=== PATIENT | male | born 1960 | race Caucasian/White ===

== ENCOUNTER 2020-11-29 08:35 | Outpatient (REF) | payer OTHER, SELFPAY ==
--- NOTE | 2020-11-29 09:00 | EMG_ITS ---
Left median and ulnar motor and sensory studies were performed. Left radial sensory study was performed. Paraspinal and some limb muscles were tested with a needle. IMPRESSION: Chronic left mid cervical radiculopathy. MD FRIEDA Chavez/STEPHANIE / [id number]
== END 2020-11-29 08:36 | disposition home or self-care (01) ==
LOC: HO.NEURO 08:35
PROVIDERS: PCP Internal Medicine; Visit Provider Internal Medicine
DX: M79.602 Pain in left arm (principal)
CPT/HCPCS: 95860; 95886; 95909; 95910

== ENCOUNTER 2020-12-10 07:55 | Outpatient (REF) | payer OTHER, SELFPAY ==
--- NOTE | 2020-12-10 08:02 | XR_ITS ---
EXAMINATION: XR CERVICAL SPINE CLINICAL INFORMATION: Cervical radiculopathy. COMPARISON: None TECHNIQUE: Five views of the cervical spine. FINDINGS: Bone alignment is normal. No fracture or dislocation is seen. There is degenerative spondylosis and degenerative disc disease from C3-C4 to C6-C7. There is right-sided neuroforaminal narrowing from bony osteophyte from C2-C3 to C4-C5. There is left-sided neuroforaminal narrowing from bony osteophyte at C2-C3, C4-C5 and C5-C6. Prevertebral soft tissues are normal. There is posterior soft tissue calcification or ossification posterior to the C5 spinous process probably in the nuchal ligament. XR/XR cervical spine 4V IMPRESSION: Degenerative changes.
== END 2020-12-10 07:56 | disposition home or self-care (01) ==
LOC: HO.XRAY 07:55
PROVIDERS: PCP Internal Medicine; Visit Provider Internal Medicine
DX: M54.12 Radiculopathy, cervical region (principal)
CPT/HCPCS: 72050

== ENCOUNTER 2020-12-19 07:50 | Outpatient (REF) | payer OTHER, SELFPAY ==
[2020-12-19 08:34] LABS: MANUAL DIFF FLAG NO
[2020-12-19 08:38] LABS: Basophils Absolute Auto 0.1 X10*3/uL (0.0-0.2); Basophils Percent Auto 1.2 % (0-2); Eosinophils Absolute Auto 0.4 X10*3/uL (0.0-0.4); Eosinophils Percent Auto 4.3 % (0-4); Hematocrit 44.4 % (42-52); Hemoglobin 14.2 g/dl (14.0-18.0); Imm Gran Abs Auto 0.02 X10*3/uL (0.00-0.03); Imm Gran Pct Auto 0.2 % (0.0-0.4); Lymphocytes Percent Auto 35.4 % (20-40); Mean Corpuscular Hemoglobin 28.7 pg (27.0-33.0); Mean Corpuscular Volume 89.9 fL (80-98); Mean Platelet Volume 10.2 fL (9.4-12.4); Monocytes Absolute Auto 0.9 X10*3/uL (0.1-1.2); Monocytes Percent Auto 10.3 % (2-11); Neutrophils Absolute Auto 4.1 X10*3/uL (2.0-8.3); Neutrophils Percent Auto 48.6 % (45-73); Platelet Count 317 X10*3/uL (160-400); Red Blood Count 4.94 X10*6/uL (4.60-5.80); Red Cell Distribution Width 13.1 % (11.0-16.0); White Blood Count 8.4 X10*3/uL (4.8-10.8)
[2020-12-19 09:08] LABS: Alanine Aminotransferase 11 U/L (0-40); Alkaline Phosphatase 114 U/L (39-117); Anion Gap 12 (12-20); Aspartate Amino Transferase 11 U/L (5-37); Bilirubin Direct 0.2 mg/dL (0.0-0.5); Bilirubin Total 0.4 mg/dL (0.0-1.0); Blood Urea Nitrogen 14 mg/dL (9-16); Calcium 9.2 mg/dL (8.4-10.2); Carbon Dioxide 29 mmol/L (22-29); Chloride 106 mmol/L (96-108); Cholesterol 150 mg/dL; Creatinine Urine 147.65 mg/dL; Estimated Glomerular Filt Rate > 60; Glucose Random 99 mg/dL (60-115); HDL Cholesterol 45 mg/dL; LDL Cholesterol Calculated 82 mg/dl; Microalbum/Creatinine Ratio Ur 8.1 ug/mg cr; Potassium 4.5 mmol/l (3.3-5.1); Sodium 142 mmol/L (135-145); Total Protein 6.4 g/dL (6.5-8.0); Triglycerides 117 mg/dL
[2020-12-19 09:30] LABS: Estimated Average Glucose 283 mg/dL; Hemoglobin A1c % 11.5 %
[2020-12-19 09:31] LABS: TSH reflex Free T4 4.72 mIU/mL (0.32-4.0); Vitamin D 25-OH Total 15.1 ng/mL (>30)
[2020-12-19 10:05] LABS: Free T4 (Free Thyroxine) 0.98 ng/dL (0.71-1.85)
== END 2020-12-19 07:51 | disposition home or self-care (01) ==
LOC: HO.LAB 07:50
PROVIDERS: PCP Internal Medicine; Visit Provider Internal Medicine
DX: Z00.00 Encounter for general adult medical examination without abnormal findings (principal)
CPT/HCPCS: 36415; 80048; 80061; 80076; 82043; 82306; 83036; 84439; 84443; 85025

== ENCOUNTER 2021-05-25 12:08 | Emergency (ER) | payer OTHER, SELFPAY ==
--- NOTE | ~2021-05-25 | CT_ITS ---
EXAMINATION: CT HEAD WITHOUT CONTRAST CLINICAL INFORMATION: Headaches. COMPARISON: None TECHNIQUE: Contiguous axial imaging was performed from the skull base to vertex without intravenous administration of contrast. This CT examination was performed using dose optimization techniques as appropriate, variously including the following: *Automated exposure control *Adjustment of mA and/or kV according to patient size (this includes techniques or standardized protocols for targeted exams where dose is matched to indication/reason for exam; i.e. extremities or head) *Use of iterative reconstruction technique DLP: 725 mGy-cm FINDINGS: There is no evidence of acute intracranial hemorrhage or territorial infarction. No abnormal mass effect or midline shift is seen. Johnson to white matter differentiation is well preserved. No extra-axial fluid collections are identified. The ventricles are normal in size. There is no abnormal attenuation within the brain parenchyma. Small amount of density is seen in the right external auditory canal, likely representing cerumen. The osseous structures and soft tissues are normal. Mild mucosal thickening is seen in the posterior left ethmoid air cells and in the right frontal sinus. The mastoid air cells and visualized portions of the remainder of the paranasal sinuses are well aerated. CT/CT head/brain wo con IMPRESSION: No acute intracranial pathology.
[2021-05-25 12:09] VITALS: BP 143/89; PULSE 98; RESP 18; TEMP 36.7; O2SAT 99; BMI 30.9
[2021-05-25 12:35] VITALS: BP 116/73; PULSE 85; RESP 16; TEMP 36.7; O2SAT 95
--- NOTE | 2021-05-25 12:41 | ED_ITS ---
HPI - Headache General Chief Complaint: Headache Stated Complaint: migraine Time Seen by Provider: 05/25/21 12:14 Source: patient Mode of arrival: ambulatory Limitations: no limitations History of Present Illness HPI Narrative: 60-year-old male with past medical history of NH, diabetes, hypertension, hyperlipidemia, and obesity presents with the worst headache of his life that started on Thursday. He does not report taking any medications to help alleviate this pain, stated that the pain is mostly on the right side in the back of his head, changes with position, with light sensitivity and sound sensitivity. He has had headaches in the past but not like this. He does not report any changes in vision, dizziness, lightheadedness, weakness, loss of balance, loss of sensation to extremities, difficulty swallowing, difficulty chewing, chest pain or pressure, palpitations, shortness of breath, abdominal p ain, abdominal distention, dysuria, hematuria, edema, and any other concerning symptoms. MD elicited complaint: headache and migraine Onset (ago): day(s) (4) Onset description: gradually Location: right and occipital Severity: severe Pain scale (0-10): 10 Quality & Timing: throbbing, constant, progressively worsening and worst headache of life Exacerbating factors: movement of head/neck, light and noise Relieving factors: nothing Context: occurred at rest Associated symptoms: photophobia and sensitivity to sound Treatments prior to arrival: none Related Data Previous Rx's Medication Instructions Recorded [id number] 1 cap PO Q6H PRN #7 cap 05/25/21 [Fioricet] Allergies Allergy/AdvReac Type Severity Reaction Status Date / Time penicillin V Allergy Unknown Verified 07/25/20 00:00 No Known Allergies [NKA] Allergy Unverified 08/16/20 16:54 Review of Systems Review of Systems: Constitutional: No Fever, No Chills ENT/Mouth: No Ear Pain, No Hoarseness, No sore throat Eyes: No Eye Pain, No Swelling, No Redness, No Foreign Body Cardiovascular: No Chest Pain, No SOB Respiratory: No Cough, No Dyspnea Gastrointestinal: No Nausea, No Vomiting, No Diarrhea, No abdominal Pain Genitourinary: No Dysuria, No Hematuria Musculoskeletal: no joint pain, No Myalgias, No Joint Swelling Skin: No Skin lacerations, No rash Neuro: Positive headache, No Weakness, No Numbness, No Paresthesias, No Loss of Consciousness, No Dizziness Psych: No Anxiety/Panic, No Depression Heme/Lymph: no easy bruising, no Lymphadenopathy Endocrine: No Polyuria, No Polydipsia Yes all other systems are reviewed and are negative [facility] Past Medical History Attestation statement: The following information was validated with the patient. Source: old records reviewed Medical History Diabetes HTN (hypertension) Social History Social History Advance Directives: No Advance Directives Information Provided: Yes Physical Exam Vital Signs: Vital Signs: Last Vital Signs Temp 98.0 F 05/25/21 12:35 Pulse 85 05/25/21 12:35 Resp 16 05/25/21 12:35 BP 116/73 05/25/21 12:35 Pulse Ox 95 05/25/21 12:35 Body Mass Index 30.9 Appearance: Alert. Oriented X3. No acute distress. Head: Normal external exam. Normocephalic. Atraumatic. No Crenshaw signs noted. No raccoon eyes noted Eyes: PERRLA. EOMI. Conjunctiva and sclera normal. Eyelids normal. ENT: Left tympanic membrane normal, right tympanic membrane occluded by wax. Pharynx normal. Uvula midline. Moist mucous membranes. No trismus noted. No drooling noted. No muffled voice noted. Neck: Normal inspection. Neck supple. No adenopathy. No meningeal signs. No neck mass noted. CVS: Normal heart rate and rhythm. Heart sound normal. No murmurs noted. Pulses equal to all extremities. Respiratory: No respiratory distress. Painless inspiration. lung sounds clear to auscultation all lobes. Chest nontender. No accessory muscle usage noted or decreased air movement noted. Abdomen: Soft and nontender. Bowel sounds normal in all 4 quadrants. No distention noted. No organomegaly noted. No visible injury noted. Back: No CVA tenderness. Full range of motion noted. Skin: Skin warm and dry. Normal skin color. Normal skin turgor. No rashes/lesions/lacerations noted. Extremities: No lower extremity edema. Extremities exhibit normal range of motion. Extremities nontender. Neuro: cranial nerves 2-12 intact, no focal neural deficits, strength 5/5 to all extremities, No motor deficit. No sensory deficit. NIH Stroke Scale Internal: Initial- Upon Arrival Level of Consciousness: Alert Level of Consciousness Questions: Answers both questions correctly Level of Consciousness Commands: Performs both tasks correctly Best Gaze: Normal Visual: No visual loss Facial Palsy: Normal Motor Arm (Right): No drift Motor Arm (Left): No drift Motor Leg (Right): No drift Motor Leg (Left): No drift Limb Ataxia: Absent Sensory: Normal Best Language: No aphasia Dysarthia: Normal Extinction and Inattention: No abnormality Score: 0 Course Course Course Narrative: 60-year-old male with past medical history of NH, diabetes, hypertension, hyperlipidemia, and obesity presents with the worst headache of his life that started on Thursday. He does not report taking any medications to help alleviate this pain, stated that the pain is mostly on the right side in the back of his head, changes with position, with light sensitivity and sound sensitivity. Plan is for Tylenol as patient has not taken any [id number] meds for this headache. Will order CT of head as this is his worst headache of his life. NIH stroke scale 0. 1:40 p.m. patient states that the Tylenol was mildly effective. Did order some Fioricet. 2:33 p.m. patient states that he feels much better. Plan of care is to discharge home, he does understand that he must follow up with primary care physician and/or Neurology for new onset of migraines. machine set up operator paper goods utilized for all correspondence. Google translate utilized for discharge inst ructions. MDM - Headache Differential Diagnosis Differential diagnosis: Likely migraine, tension headache, subarachnoid hemorrhage, headache and sinusitis Medical Records Attestation: I reviewed the patient's medical records. Lab Data Attestation: I reviewed the patient's lab results. Result diagrams: 05/25/21 12:44 05/25/21 12:44 Labs: Lab Results 05/25/21 05/25/21 05/25/21 Range/Units 12:44 12:44 12:44 WBC 8.2 (4.8-10.8) X10*3/uL RBC 5.01 (4.60-5.80) X10*6/uL Hgb 14.2 (14.0-18.0) g/dl Hct 43.1 (42-52) % MCV 86.0 (80-98) fL MCH 28.3 (27.0-33.0) pg MCHC 32.9 (31.0-36.0) g/dl RDW 13.0 (11.0-16.0) % Plt Count 283 (160-400) X10*3/uL MPV 9.6 (9.4-12.4) fL Immature Gran % (Auto) 0.1 (0.0-0.4) % Neut % (Auto) 59.7 (45-73) % Lymph % (Auto) 26.8 (20-40) % York % (Auto) 9.5 (2-11) % Eos % (Auto) 3.2 (0-4) % Baso % (Auto) 0.7 (0-2) % Lymph # (Auto) 2.2 (1.2-4.9) X10*3/uL York # (Auto) 0.8 (0.1-1.2) X10*3/uL Eos # (Auto) 0.3 (0.0-0.4) X10*3/uL Baso # (Auto) 0.1 (0.0-0.2) X10*3/uL Abs Immat Gran (auto) 0.01 (0.00-0.03) X10*3/uL Absolute Neuts (auto) 4.9 (2.0-8.3) X10*3/uL Absolute Nucleated RBC 0.000 (0.0-0.012) X10*3/uL Nucleated RBC % (auto) 0.0 (0.0-0.2) /100WBC Sodium 139 (135-145) mmol/L Potassium 4.4 (3.3-5.1) mmol/L Chloride 106 (96-108) mmol/L Carbon Dioxide 24 (22-29) mmol/L Anion Gap 13 (12-20) BUN 14 (9-16) mg/dL Creatinine 0.96 (0.5-1.4) mg/dL Estim Creat Clear Calc 78.9 Estimated GFR > 60 POC Glucose (60-115) mg/dL Random Glucose 182 H D (60-115) mg/dL Calcium 8.8 (8.4-10.2) mg/dL Urine Color YELLOW Urine Appearance CLEAR Urine pH 6.0 (5.0-8.0) Ur Specific Sacul 1.025 (1.005-1.025) Urine Protein NEG (NEG-TRACE) MG/DL Urine Glucose (UA) 250 H (NEG) MG/DL Urine Ketones NEG (NEG) MG/DL Urine Blood NEG (NEG) Urine Nitrite NEG (NEG) Ur Leukocyte Esterase NEG (NEG) 05/25/21 Range/Units 12:44 WBC (4.8-10.8) X10*3/uL RBC (4.60-5.80) X10*6/uL Hgb (14.0-18.0) g/dl Hct (42-52) % MCV (80-98) fL MCH (27.0-33.0) pg MCHC (31.0-36.0) g/dl RDW (11.0-16.0) % Plt Count (160-400) X10*3/uL MPV (9.4-12.4) fL Immature Gran % (Auto) (0.0-0.4) % Neut % (Auto) (45-73) % Lymph % (Auto) (20-40) % York % (Auto) (2-11) % Eos % (Auto) (0-4) % Baso % (Auto) (0-2) % Lymph # (Auto) (1.2-4.9) X10*3/uL York # (Auto) (0.1-1.2) X10*3/uL Eos # (Auto) (0.0-0.4) X10*3/uL Baso # (Auto) (0.0-0.2) X10*3/uL Abs Immat Gran (auto) (0.00-0.03) X10*3/uL Absolute Neuts (auto) (2.0-8.3) X10*3/uL Absolute Nucleated RBC (0.0-0.012) X10*3/uL Nucleated RBC % (auto) (0.0-0.2) /100WBC Sodium (135-145) mmol/L Potassium (3.3-5.1) mmol/L Chloride (96-108) mmol/L Carbon Dioxide (22-29) mmol/L Anion Gap (12-20) BUN (9-16) mg/dL Creatinine (0.5-1.4) mg/dL Estim Creat Clear Calc Estimated GFR POC Glucose 169 H (60-115) mg/dL Random Glucose (60-115) mg/dL Calcium (8.4-10.2) mg/dL Urine Color Urine Appearance Urine pH (5.0-8.0) Ur Specific Sacul (1.005-1.025) Urine Protein (NEG-TRACE) MG/DL Urine Glucose (UA) (NEG) MG/DL Urine Ketones (NEG) MG/DL Urine Blood (NEG) Urine Nitrite (NEG) Ur Leukocyte Esterase (NEG) Imaging Data CT scan - head: Attestation: I personally reviewed and interpreted this imaging study as follows: Radiologist's impression: EXAMINATION: CT HEAD WITHOUT CONTRAST CLINICAL INFORMATION: Headaches. COMPARISON: None TECHNIQUE: Contiguous axial imaging was performed from the skull base to vertex without intravenous administration of contrast. This CT examination was performed using dose optimization techniques as appropriate, variously including the following: *Automated exposure control *Adjustment of mA and/or kV according to patient size (this includes techniques or standardized protocols for targeted exams where dose is matched to indication/reason for exam; i.e. extremities or head) *Use of iterative reconstruction technique DLP: 725 mGy-cm FINDINGS: There is no evidence of acute intracranial hemorrhage or territorial infarction. No abnormal mass effect or midline shift is seen. Johnson to white matter differentiation is well preserved. No extra-axial fluid collections are identified. The ventricles are normal in size. There is no abnormal attenuation within the brain parenchyma. Small amount of density is seen in the right external auditory canal, likely representing cerumen. The osseous structures and soft tissues are normal. Mild mucosal thickening is seen in the posterior left ethmoid air cells and in the right frontal sinus. The mastoid air cells and visualized portions of the remainder of the paranasal sinuses are well aerated. CT/CT head/brain wo con IMPRESSION: No acute intracranial pathology. Discharge Plan Discharge Clinical Impression: Migraine Qualifiers: Migraine type: unspecified Status migrainosus presence: without status migrainosus Intractability: intractable Qualified Code(s): G43.919 - Migraine, unspecified, intractable, without status migrainosus Patient Disposition: Home, Self-Care Instructions: Migraine Headache (ED), Acute Headache (ED) Additional Instructions: fue evaluado por migra?a. Shila un seguimiento con carcamo m?dico de atenci?n primaria y / o neurolog?a seg?n sea necesario. Le recet? Fioricet. Park medicamento es para las migra?as. Siga las instrucciones. Gisella por elegir park departamento de emergencias para carcamo evaluaci?n. Shila un seguimiento con carcamo m?dico de atenci?n primaria seg?n sea necesario. Regrese al departamento de emergencias por cualquier s?ntoma nuevo, preocupante o que empeore. you were evaluated for migraine headache. Please follow-up with your primary care physician and/or Neurology as needed. I prescribed Fioricet. This medication is for migraine headaches. Please follow the instructions. Thank you for choosing this emergency department for evaluation. Please follo w-up with primary care physician as needed. Return to the emergency department for any new, concerning, or worsening symptoms. Prescriptions: New eudenqutmr-[id number] [Fioricet] 50-300-40 mg capsule 1 cap PO Q6H PRN (Reason: migraine) Qty: 7 RF: 0 Referrals: Vaughn Garcia MD [Physician] - 2 days ( New onset migraine) Interventions: ED Discharge Assessment Last Done: 05/25/21 14:54 Discharge Date/Time: 05/25/21 15:12
[2021-05-25] MEDS: Acetaminophen 325 MG TABLET 650 MG PO (12:46)
[2021-05-25 12:49] LABS: Glucose, Whole Blood 169 mg/dL (60-115); MANUAL DIFF FLAG NO
[2021-05-25 12:50] LABS: Glucose Urine UA 250 MG/DL (NEG); Leukocyte Esterase Urine NEG (NEG); Nitrite Urine NEG (NEG); Specific Gravity - Urine 1.025 (1.005-1.025); Urine Blood NEG (NEG); Urine Ketones NEG (NEG); Urine Protein NEG (NEG-TRACE)
[2021-05-25 12:51] LABS: Appearance Urine CLEAR; Basophils Absolute Auto 0.1 X10*3/uL (0.0-0.2); Basophils Percent Auto 0.7 % (0-2); Color Urine YELLOW; Eosinophils Absolute Auto 0.3 X10*3/uL (0.0-0.4); Eosinophils Percent Auto 3.2 % (0-4); Hematocrit 43.1 % (42-52); Hemoglobin 14.2 g/dl (14.0-18.0); Imm Gran Abs Auto 0.01 X10*3/uL (0.00-0.03); Imm Gran Pct Auto 0.1 % (0.0-0.4); Lymphocytes Absolute Auto 2.2 X10*3/uL (1.2-4.9); Lymphocytes Percent Auto 26.8 % (20-40); Mean Corpuscular HGB Conc 32.9 g/dl (31.0-36.0); Mean Corpuscular Hemoglobin 28.3 pg (27.0-33.0); Mean Platelet Volume 9.6 fL (9.4-12.4); Monocytes Absolute Auto 0.8 X10*3/uL (0.1-1.2); Monocytes Percent Auto 9.5 % (2-11); Neutrophils Absolute Auto 4.9 X10*3/uL (2.0-8.3); Neutrophils Percent Auto 59.7 % (45-73); Platelet Count 283 X10*3/uL (160-400); Red Blood Count 5.01 X10*6/uL (4.60-5.80); White Blood Count 8.2 X10*3/uL (4.8-10.8)
[2021-05-25 13:09] LABS: Anion Gap 13 (12-20); Blood Urea Nitrogen 14 mg/dL (9-16); Calcium 8.8 mg/dL (8.4-10.2); Carbon Dioxide 24 mmol/L (22-29); Chloride 106 mmol/L (96-108); Creatinine Clr Calc Pharmacy 78.9; Estimated Glomerular Filt Rate > 60; Glucose Random 182 mg/dL (60-115); Potassium 4.4 mmol/L (3.3-5.1); Sodium 139 mmol/L (135-145)
== END 2021-05-25 15:12 | disposition home or self-care (01) ==
PROVIDERS: Nurse Practitioner Family; Emergency Provider Emergency Medicine; PCP Internal Medicine
DX: G43.919 Migraine, unspecified, intractable, without status migrainosus (principal); E11.9 Type 2 diabetes mellitus without complications; I10 Essential (primary) hypertension; I25.2 Old myocardial infarction
CPT/HCPCS: 36415; 70450; 80048; 81003; 82947; 85025; 99284

== ENCOUNTER 2022-11-26 10:00 | Emergency (ER) | payer OTHER, SELFPAY ==
[2022-11-26 10:02] VITALS: BP 125/77; PULSE 96; RESP 18; TEMP 36.4; O2SAT 96; BMI 35.2
--- NOTE | 2022-11-26 10:26 | ED_ITS ---
HPI - Extremity Problem General Chief complaint: Extremity Injury, Upper Stated complaint: R shoulder pain, no inj Time Seen by Provider: 11/26/22 10:25 Source: patient Mode of arrival: ambulatory Limitations: no limitations History of Present Illness HPI Narrative: Patient is a 62 year old assigned male at with a history of DM presenting to the emergency department today with right upper arm pain. Patient states that over the last month he has had increased difficulty lifting his right arm secondary to pain. Patient denies any dizziness, lightheadedness, abdominal pain, nausea, vomiting, fever, chills, blurry vision, double vision, loss of vision, chest pain, difficulty breathing, shortness of breath, back pain, night sweats, pain with urination, increased urinary frequency, increased urinary urgency, blood in his urine or stool, syncope or a near syncopal episode, recent trauma or falls, bowel incontinence, bladder incontinence, bowel retention, bladder retention, or any other complaints at this time. MD Complaint: extremity pain Onset (ago): month(s) (1) Pain Consistency: constant Location: right and upper extremity Severity scale (1-10): 4 Quality: aching and dull Radiation: none Relieving factors: nothing Exacerbating factors: range of motion Associated symptoms: denies other symptoms Related Data Home Medications Medication Instructions Recorded Confirmed amlodipine 10 mg tablet 10 mg PO DAILY 10/27/22 aspirin 81 mg tablet,delayed 81 mg PO DAILY 10/27/22 release atorvastatin 40 mg tablet 40 mg PO BEDTIME 10/27/22 bupropion HCl 150 mg 24 hr tablet, 150 mg PO QAM 10/27/22 extended release bupropion HCl 300 mg 24 hr tablet, 300 mg PO QAM 10/27/22 extended release dulaglutide 0.75 mg/0.5 mL mg subcut QWEEK 10/27/22 subcutaneous pen injector (Trulicity) dulaglutide 1.5 mg/0.5 mL 1.5 mg subcut QWEEK 10/27/22 subcutaneous pen injector (Trulicity) gabapentin 800 mg tablet 800 mg PO QID 10/27/22 glipizide 5 mg tablet 5 mg PO DAILY 10/27/22 insulin detemir U-100 100 unit/mL 30 unit subcut BID 10/27/22 (3 mL) subcutaneous pen (Levemir FlexTouch U-100 Insulin) metformin 1,000 mg tablet 1,000 mg PO BID 10/27/22 metformin 500 mg tablet 500 mg PO BID 10/27/22 risperidone 2 mg tablet 2 mg PO BEDTIME 10/27/22 Previous Rx's Medication Instructions Recorded gaxjdkkjjl-sgmgtjqvvqacp-qwguoxty 1 cap PO Q6H PRN migraine #7 caps 05/25/21 50 mg-300 mg-40 mg capsule (Fioricet) prednisone 20 mg tablet 20 mg PO DAILY 7 days #7 tabs 11/26/22 Allergies Allergy/AdvReac Type Severity Reaction Status Date / Time penicillin V Allergy Unknown Verified 07/25/20 00:00 No Known Allergies [NKA] Allergy Unverified 08/16/20 16:54 Review of Systems Constitutional: Constitutional: Reports no additional constitutional complaints, Denies chills, Denies fever(s) and Denies night sweats Eyes: Eyes: Reports no additional eye complaints, Denies blurry vision, Denies change in vision, Denies diplopia, Denies eye discharge, Denies loss of vision and Denies eye pain ENT: Denies dizziness Cardiovascular: Cardiovascular: Reports no additional cardiovascular complaints, Denies chest pain, Denies lightheadedness, Denies Loss of Consciousness and Denies dyspnea Respiratory: Respiratory: Reports no additional respiratory complaints and Denies dyspnea Gastrointestinal: Gastrointestinal: Reports no additional gastrointestinal complaints, Denies abdominal pain, Denies melena, Denies hematochezia, Denies change in bowel habits and Denies change in stool character Genitourinary: Genitourinary: Reports no additional male genitourinary complaints, Denies hematuria, Denies oliguria, Denies difficulty urinating, Denies dysuria, Denies urinary frequency, Denies urinary hesitancy, Denies urinary incontinence and Denies urinary urgency Musculoskeletal: Musculoskeletal: Reports no additional musculoskeletal complaints, Denies numbness and Denies tingling Comments: right upper arm pain Neurologic: Denies dizziness, Denies loss of vision, Denies numbness and Denies tingling Psychiatric: Psychiatric: Reports no additional psychiatric complaints Endocrine: Endocrine: Reports no additional endocrine complaints Hematologic/Lymphatic: Hematologic/Lymphatic: Reports no additional hematologic/lymphatic complaints Allergic/Immunologic: Allergic/Immunologic: Reports no additional allergic/immunologic complaints PMFSH Past Medical History Attestation statement: The following information was validated with the patient. Source: old records reviewed and nursing notes reviewed Medical History Cervical radiculopathy Diabetes Diabetes mellitus, type II HTN (hypertension) Noncompliance with diabetes treatment Osteochondritis Schizoaffective disorder Tinea pedis Tinea pedis of both feet Social History Social History Advance Directives: No Advance Directives Information Provided: Yes Physical Exam Vital Signs: Vital Signs: Last Vital Signs Temp 97.6 F 11/26/22 10:02 Pulse 96 11/26/22 10:02 Resp 18 11/26/22 10:02 BP 125/77 11/26/22 10:02 Pulse Ox 96 11/26/22 10:02 O2 Del Method 11/26/22 10:02 BMI result Body Mass Index 35.2 Const: General: cooperative, no acute distress, alert and awake Nutritional Appearance: well nourished Orientation/consciousness: patient oriented x3 Limitations: no limitations HEENT: Head: Yes normal to inspection and Yes atraumatic Ears: hearing grossly normal bilaterally and external ears normal General nose exam: Normal external nose present, no nasal discharge noted and no epistaxis Face and sinus: Yes normal facial exam, No abrasion and No laceration Mouth: Normal oral and palatal mucosa present, no drooling and no muffled voice Eyes: General: appearance normal, both eyes and all related structures Periorbital: periorbital findings normal Eyelids: Yes eyelids normal Conjunctivae: conjunctivae normal Pupils: Equal, round and reactive pupils present EOM: EOMs intact bilaterally Neck: Neck: Yes normal visual inspection, Yes full ROM and Yes no lymphadenopathy Chest: Chest palpation & inspection: normal inspection of the chest Resp: Effort & Inspection: normal respiratory effort and able to speak in comp lete sentences Auscultation: clear to auscultation bilaterally Cardio: Rate: regular rate Rhythm: regular rhythm GI: Inspection: Yes normal to inspection Palpation (GI): Soft to palpation, not firm, nontender and no guarding Neuro: General: patient oriented x3 and moves all extremities Cranial nerves: Yes Equal, round and reactive pupils present Cognition (Neuro): normal cognition Motor exam (neuro): 5/5 motor strength present throughout Sensory Exam: Normal double simultaneous stimulation for sensation Coordination: zrawlt-wj-qvqc test normal Extrem: Other: limited ROM of the right shoulder, consistent with rotator cuff injury/insufficiency General: Yes normal to inspection and Yes capillary refill normal Psych: Appearance: grossly normal Mental Status: mental status grossly normal Affect: normal affect Attitude: cooperative Thought process: Normal thought process present Thought content: Normal thought content pre sent Insight: Good insight present (Psych) Medical Decision Making Medical Decision Making MDM Narrative: Patient is a 62 year old assigned male at with a history of DM presenting to the emergency department today with right upper arm pain. Patient's physical exam showed limited range of motion of the right shoulder secondary to pain. Patient's clinical presentation is consistent with rotator cuff injury vs. insufficiency. I explained my physical exam findings to the patient and the patient's . I answered all questions asked by the patient and the patient's . I stressed the importance of the patient taking his medication as prescribed. I stressed the importance of the patient following up with his primary care provider and an orthopedic provider. I stressed the importance of the patient returning to the emergency department immediately if his symptoms were to worsen or if he were to develop any dizziness, shortness of breath, difficulty breathing, chest pain, blurry vision, loss of vision, nausea, vomiting, abdominal pain, fever, chills, back pain, or any other complaints. Patient and the patient's verbalized agreement and understanding with this treatment plan and discharge. Differential Diagnosis Differential Diagnoses: The differential diagnosis associated with the presentation includes rotator cuff injury, rotator cuff insufficiency, upper arm pain, shoulder pain Discharge Plan Discharge Clinical Impression: Rotator cuff injury Patient Disposition: Home, Self-Care Instructions: Rotator Cuff Injury (ED), Rotator Cuff Injury Exercises (DC) Additional Instructions: Follow up with your primary care provider and an orthopedic provider. Return to the emergency department immediately if your symptoms worsen or if you develop any dizziness, shortness of breath, difficulty breathing, chest pain, blurry vision, loss of vision, nausea, vomiting, abdominal pain, fever, chills, back pain, or any other complaints. Shila un seguimiento con carcamo proveedor de atenci?n primaria y un proveedor ortop?dico. Regrese a la gonzalo de emergencias de inmediato si genny s?ntomas empeoran o si presenta mareos, dificultad para respirar, dolor de pecho, visi?n borrosa, p?rdida de la visi?n, n?useas, v?mitos, dolor abdominal, fiebre, escalofr?os, dolor de espalda o cualquier otras quejas. Prescriptions: New prednisone 20 mg tablet 20 mg PO DAILY 7 Days Qty: 7 0RF No Action crvdzpygqw-fjptbxxenfzwk-cunq [Fioricet] 50-300-40 mg capsule 1 cap PO Q6H PRN (Reason: migraine) Qty: 7 0RF metformin 500 mg tablet 500 mg PO BID Trulicity 1.5 mg/0.5 mL pen injector 1.5 mg subcut QWEEK glipizide 5 mg tablet 5 mg PO DAILY amlodipine 10 mg tablet 10 mg PO DAILY bupropion HCl 150 mg tablet extended release 24 hr 150 mg PO QAM bupropion HCl 300 mg tablet extended release 24 hr 300 mg PO QAM risperidone 2 mg tablet 2 mg PO BEDTIME Trulicity 0.75 mg/0.5 mL pen injector subcut QWEEK Levemir FlexTouch U-100 Insuln 100 unit/mL (3 mL) insulin pen 30 unit subcut BID gabapentin 800 mg tablet 800 mg PO QID metformin 1,000 mg tablet 1,000 mg PO BID aspirin 81 mg tablet,delayed release (DR/EC) 81 mg PO DAILY atorvastatin 40 mg tablet 40 mg PO BEDTIME Referrals: [facility] [Provider Group] ( Llame para establecer y hacer un seguimiento con un proveedor ortop?dico. ) Tiffanie Yanes MD [Primary Care Provider] - Print Language: Upper Sorbian
== END 2022-11-26 10:46 | disposition home or self-care (01) ==
LOC: HO.ED 10:37
PROVIDERS: Emergency Provider Student in an Organized Health Care Education/Training Program; PCP Internal Medicine
DX: S43.421A Sprain of right rotator cuff capsule, initial encounter (principal); X58.XXXA Exposure to other specified factors, initial encounter; Y93.9 Activity, unspecified; Y92.9 Unspecified place or not applicable; Y99.9 Unspecified external cause status
CPT/HCPCS: 99283

== ENCOUNTER 2023-03-24 12:03 | Outpatient (REF) | payer OTHER, SELFPAY ==
--- NOTE | ~2023-03-24 | XR_ITS ---
EXAMINATION: XR SHOULDER, RIGHT CLINICAL INFORMATION: Chronic right shoulder pain. COMPARISON: None available. TECHNIQUE: Three views of the right shoulder. FINDINGS: There is question of an old healed nondisplaced humeral head fracture with no definite acute fracture identified. Glenohumeral joint appears unremarkable. Calcific tendinitis is present. Mild degenerative change of the acromioclavicular joint is seen. No evidence of widening of the coracoclavicular space. Sclerotic lesion likely representing a bone island is seen within the glenoid. XR/XR shoulder RT min 2V IMPRESSION: Question old humeral head fracture without evidence of acute fracture appreciated. This appearance may be artifactual in nature related to tuberosities and fused growth plate appearance. Calcific tendinitis.
== END 2023-03-24 12:04 | disposition home or self-care (01) ==
LOC: HO.XRAY 12:03
PROVIDERS: PCP Internal Medicine; Visit Provider Internal Medicine
DX: M25.511 Pain in right shoulder (principal)
CPT/HCPCS: 73030

== ENCOUNTER 2023-04-24 06:10 | Outpatient (REF) | payer OTHER, SELFPAY ==
--- NOTE | ~2023-04-24 | XR_ITS ---
EXAMINATION: XR SHOULDER, RIGHT CLINICAL INFORMATION: M25.511 - Pain in right shoulder COMPARISON: Radiographs right shoulder 03/24/2023 TECHNIQUE: Right shoulder is imaged in 3 views. FINDINGS: There is no acute or healing fracture or dislocation or destructive process. The glenohumeral joint is unremarkable. There are mild degenerative changes acromioclavicular joint. The acromioclavicular alignment is normal. There is a punctate mineralization adjacent to the greater tuberosity again seen. XR/XR shoulder RT min 2V IMPRESSION: - No fracture or dislocation. - Mild degenerative changes acromioclavicular joint. - Punctate calcific tendinosis in region of distal superior rotator cuff.
== END 2023-04-24 06:11 | disposition home or self-care (01) ==
LOC: HO.HOSX 06:10
PROVIDERS: Visit Provider Physician Assistant
DX: M25.511 Pain in right shoulder (principal); M75.81 Other shoulder lesions, right shoulder
CPT/HCPCS: 73030; 99202

== ENCOUNTER 2023-06-05 09:00 | Outpatient (RCR) | payer OTHER, SELFPAY ==
--- NOTE | 2023-06-01 13:07 | MHC.PT.EP ---
[facility] [place] Office [place] Office [place] Office [address] Frank Pinzon [address] [phone] F: [phone] F: [phone] F: [phone] F: [phone] Physical Therapy Plan of Care Date of Evaluation: Date of Surgery: Diagnosis: TENDONITIS Rt RC Assessment: 62 YO MALE REF TO PT FOR Rt SH PAIN, Rt RC TENDONITIS SINCE 10/2022- PER Pt, INSIDUOUS ONSET. HE IS Rt HAND DOMINANT, PER Pt SEDENTARY LIFESTYLE, AND HE IS UNEMPLOYED. HIS RECENT Rt SH XRAY REVEALED CALCIFIC TENDINOSIS AND CERV XRAY FROM 12/10/20 REVEALED IN PART There is right-sided neuroforaminal narrowing from bony osteophyte from C2-C3 to C4-C5 . THE Pt HAS SIGNIF PAIN THROUGHOUT Rt UE, W Rt HAND EDEMA AND DECR AROM- HE IS STIFF AND VERY GUARDED IN HIS CERV REGION/ Rt UE AND HAS RESIDUAL WEAKNESS IN HIS POST RC/ SCAP MM. HE WOULD BENEFIT FROM A TRIAL OF PT TO INITIATE Rt UE MOBILITY, EASE SOFT TISSUE TIGHTNESS, IMPROVE FUNCTIONAL ADL ILIA, AND DEV A HEP. Frequency and Duration: The patient will be seen 2 x WK x 6 WKS Short Term Goals: *Pt'S Rt SH/ UE PAIN DECR TO 2-3/10 W REG ADLs *Pt INDEP SELF-CORRECT POSTURE TO REDUCE SH MECH STRESS *Pt DEMON IMPROVED PROM-> AAROM Rt SH/ELBOW/HAND Registration Rep Goals: *Pt INDEP HEP PROGR AND SELF-SX MGMT STRATEGIES FOR Rt SH *Pt RESUME REG ADLs TO ILIA *Pt ACHIEVE WFL STRENGTH AND AROM IN Rt SH COMPLEX Treatment Plan: Modalities to reduce pain, spasms and effusion. Manual therapy to restore motion and function. Therapeutic exercise to improve strength and flexibility. Neuromuscular re-education for posture and balance. Therapeutic activities to return to functional activities of daily living. Electronically signed by: BEVERLEY MADRIDPT Please sign and return to therapist. Thank you for your referral.
--- NOTE | 2023-06-16 11:45 | MHC.PT.DC ---
[facility] [place] Office [place] Office [place] Office [address] Frank Pinzon [address] [phone] F: [phone] F: [phone] F: [phone] F: [phone] Physical Therapy Discharge Report Diagnosis: TENDONITIS Rt RC Date of Surgery: Date of Evaluation: 06/01/23 Date of Discharge: 06/16/23 Treatments to Date: 2 Cancellations to Date: 0 No Shows to Date: 3 Discharge Status: Visit Non-compliance Discharge Summary: THE Pt ATTENDED 2 APPTS AND GAINED SIGNIF ROM IN HIS Rt SHOULDER, W REDUCED PAIN. WE INITIATED A HEP, HOWEVER, WE WERE UNABLE TO ADVANCE THE Pt DID NOT ATTEND HIS LAST 3 SCHED APPTS AND IS THEREFORE D/C PER OUR DEPT ATTENDANCE POLICY. Electronically signed by: BEVERLEY MADRID,PT Please sign and return to therapist. Thank you for your referral.
== END 2023-06-16 11:47 | disposition home or self-care (01) ==
LOC: HO.PT 09:00
PROVIDERS: PCP Internal Medicine; Visit Provider Physician Assistant
DX: M75.81 Other shoulder lesions, right shoulder (principal)
CPT/HCPCS: 97110; 97140; 97162

== ENCOUNTER 2024-07-28 06:01 | Outpatient (REF) | payer OTHER, SELFPAY ==
[2024-07-28 06:28] LABS: MANUAL DIFF FLAG NO
[2024-07-28 07:48] LABS: Basophils Absolute Auto 0.1 X10*3/uL (0.0-0.2); Basophils Percent Auto 1.1 % (0-2); Eosinophils Absolute Auto 0.3 X10*3/uL (0.0-0.4); Eosinophils Percent Auto 3.5 % (0-4); Hematocrit 47.7 % (42.0-52.0); Hemoglobin 15.4 g/dl (14.0-18.0); Imm Gran Abs Auto 0.03 X10*3/uL (0.00-0.03); Imm Gran Pct Auto 0.4 % (0.0-0.4); Lymphocytes Absolute Auto 1.9 X10*3/uL (1.2-4.9); Lymphocytes Percent Auto 23.6 % (20-40); Mean Corpuscular HGB Conc 32.3 g/dl (31.0-36.0); Mean Corpuscular Hemoglobin 28.1 pg (27.0-33.0); Mean Corpuscular Volume 86.9 fL (80.0-98.0); Monocytes Absolute Auto 0.9 X10*3/uL (0.1-1.2); Monocytes Percent Auto 11.4 % (2-11); Neutrophils Absolute Auto 4.8 x10*3/uL (2.0-8.3); Platelet Count 258 X10*3/uL (160-400); Red Blood Count 5.49 X10*6/uL (4.60-5.80); Red Cell Distribution Width 13.8 % (11.0-16.0)
[2024-07-28 07:55] LABS: Estimated Average Glucose 146 mg/dL; Hemoglobin A1c % 6.7 % (<6.0)
[2024-07-28 08:24] LABS: Alanine Aminotransferase 16 U/L (0-40); Albumin Level 4.1 g/dL (3.5-5.0); Alkaline Phosphatase 158 U/L (39-117); Anion Gap 14 (12-20); Aspartate Amino Transferase 14 U/L (5-37); Bilirubin Total 0.5 mg/dL (0.0-1.0); Blood Urea Nitrogen 16 mg/dL (9-16); Calcium 9.9 mg/dL (8.4-10.2); Carbon Dioxide 26 mmol/L (22-29); Chloride 107 mmol/L (96-108); Cholesterol 146 mg/dL (<200); Estimated Glomerular Filt Rate > 60; Glucose Random 83 mg/dL (60-115); HDL Cholesterol 43 mg/dL (>40); LDL Cholesterol Calculated 83 mg/dL (<100); Potassium 4.6 mmol/L (3.3-5.1); Sodium 142 mmol/L (135-145); Total Protein 7.3 g/dL (6.5-8.0); Triglycerides 104 mg/dL (<150)
[2024-07-28 08:49] LABS: Free T4 (Free Thyroxine) 0.94 ng/dL (0.71-1.85); Thyroid Stimulating Hormone 3.92 uIU/mL (0.32-4.0)
== END 2024-07-28 06:02 | disposition home or self-care (01) ==
LOC: HO.LAB 06:01
PROVIDERS: PCP Internal Medicine; Visit Provider Psychiatry & Neurology Psychiatry
DX: Z79.899 Other long term (current) drug therapy (principal)
CPT/HCPCS: 36415; 80053; 80061; 83036; 84439; 84443; 85025

== ENCOUNTER 2025-02-02 11:24 | Outpatient (REF) | payer OTHER, SELFPAY ==
--- OUTSIDE RECORDS SUMMARY | 2025-02-02 14:02 | XMS_ITS | Encounter Summary ---
Author Organization [employer] Address [address] [facility] [address] [place] [address] Care Team Providers Care Music Industry Intern Name Role Phone Tiffanie Yanes MD Primary Care Provide r Reason for Visit * Reason Onset Date Comments Chart Prep 02/01/2025 Encounter Details Date Type Department Care Team ([facility] st Contact Info) Description 02/01/2025 Telephone [facility] [address] [place], [place] [phone] Tiffanie Yanes MD [address] [place], [place] [phone] Chart Prep Social History Tobacco Use Types Packs/Day Years Used Date Smoking Tobacco: Former Cigarettes Passive Smoke Exposure: Past Smokeless Tobacco: Never Alcohol Use Standard Drinks/Week Comments Never 0 (1 standard drink = 0.6 oz pur e alcohol) Depression Answer Date Recorded Patient Health Questionnaire-9 Score 8 07/08/2024 Patient Health Questionnaire-9 Score 8 07/08/2024 Last PHQ-9: Questionnaire Data Not on file 0 07/08/2024 Housing Stability Answer Date Recorded What is your housing situation today? I have shayy shin 09/16/[address] you li ve. Do you have problems with any of the following? None of the above 09/16/2023 Food Insecurity Answer Date Recorded Within the past 12 months, y ou worried that your food would run out before you got money to buy more: Never True 09/16/2023 Within the past 12 months,th e food you bought just didn't last and you didn't have enough money to get more: Never True Transportation Answer Date Recorded In the past 12 months, has l ack of transportation kept you from medical appts, meetings, work or from getting things needed for daily living? No 02/10/2024 Utilities Answer Date Recorded In the past 12 months, has t he electric, gas, oil or water company threatened to shut off services in your home? No 09/16/2023 Depression Answer Date Recorded Patient Health Questionnaire-2 Score 2 07/08/2024 Internet Access Answer Date Recorded Internet Access Q1 No 02/02/2025 Internet Access Q2 I do not want or need it 04/2025 Sex and Gender Information Value Date Recorded Sex Assigned at Male 09/29/2022 10:17 AM EDT Legal Sex Male 10:17 AM EDT Gender Identity Choose not to disclose 10:17 AM EDT Sexual Orientation Choose not to disclose 2021 10:17 AM EDT documented as of this encounter Miscellaneous Notes * Telephone Encounter - Guadalupe Nicholson [place] - 02/01/2025 2:25 PM EST Chart Prep Labs: not applicable Images: not applicable Vaccines due: yes Referrals: complete Screenings: colonoscopy , Foot Exam Overdue care gaps: A1C, Glucose, Sbirt, SDOH documented in this encounter Plan of Treatment Not on file documented as of this encounter Visit Diagnoses Not on filedocumented in this encounter Additional Health Concerns Assessment Noted Time PHQ-9 Depression Total Score: 8 07/08/20 24 1:37 PM EDT documented as of this encounter Care Teams Music Industry Intern Relationship Specialty Start Date End Date Tiffanie Yanes MD [address] [place] [address] PCP - General Family Medicine 05/17/20 documented as of this encounter
--- OUTSIDE RECORDS SUMMARY | 2025-02-02 14:02 | XMS_ITS | Encounter Summary ---
Author Organization [employer] Address [address] [facility] [address] [place] [address] Care Team Providers Care [employer] Crewmember Name Role Phone Tiffanie Yanes MD Primary Care Provide r Reason for Visit * Reason Comments Med Refill Encounter Details Date Type Department Care Team ([facility] st Contact Info) Description 12/31/2023 Refill [facility] [address] [place], [place] [phone] Tiffanie Yanes MD [address] [place], [place] [phone] Type 2 diabetes mellitus with hyperglycemia, with long-term current use of insulin ([facility]) Social History Tobacco Use Types Packs/Day Years Used Date Smoking Tobacco: Former Cigarettes Smokeless Tobacco: Never Alcohol Use Standard Drinks/Week Comments Never 0 (1 standard drink = 0.6 oz pur e alcohol) Housing Stability Answer Date Recorded What is your housing situation today? I have shayyfabio shin 09/16/[address] you [...] from getting things needed for daily living? Yes, it has kept me from medical appointments or getting medications. 09/08/2023 Utilities Answer Date Recorded In the past 12 months, has t he electric, gas, oil or water company threatened to shut off services in your home? No 09/16/2023 Depression Answer Date Recorded Patient Health Questionnaire-2 Score 2 03/24/2023 Sex and Gender Information Value Date Recorded Sex Assigned at Male 09/29/2022 10:17 AM EDT Legal Sex Male 10:17 AM EDT Gender Identity Choose not to disclose 10:17 AM EDT Sexual Orientation Choose not to disclose 2021 10:17 AM EDT documented as of this encounter Plan of Treatment Not on file documented as of this encounter Visit Diagnoses Diagnosis Type 2 diabetes mellitus with hyperglycemia, with long-term current use of insulin ([facility]) documented in this encounter Care Teams [employer] Crewmember Relationship Specialty Start Date End Date Tiffanie Yanes MD [address] [place] [address] PCP - General Family Medicine 05/17/20 documented as of this encounter
--- OUTSIDE RECORDS SUMMARY | 2025-02-02 14:02 | XMS_ITS | Encounter Summary ---
Author Organization [employer] Address [address] [facility] [address] [place] [address] Care Team Providers Care Controlled Area Checker Name Role Phone Tiffanie Yanes MD Primary Care Provide r Reason for Referral * Consultation (Routine) - Authorized Specialty Diagnoses / Procedures Referred By Olimpia martin Referred To Contact Pharmacy Diagnoses Type 2 diabetes mellitus with hyperglycemia, with long-term current use of insulin (CMS/HCC) Tiffanie Yanes MD [address] [place] [address] Phone: tel: fax: Referral ID Status Reason Start Date Expiration Date Visits Requested Visits Authorized [id number] Authorized Consult and Treat 02/02/2025 02/02/2026 6 6 Encounter Details Date Type Department Care Team (Late st Contact Info) Description 02/02/2025 11:00 AM EST Office Visit [facility] [address] [place] [address] [phone] Tiffanie Yanes MD [address], [place] [phone] Essential hypertension (Primary Dx); Type 2 diabetes mellitus with hyperglycemia, with long-term current use of insulin (CMS/HCC); Encounter for immunization Social History Tobacco Use Types Packs/Day Years [...] AM EDT documented as of this encounter Last Filed Vital Signs Vital Sign Reading Time Taken Comments Blood Pressure 133/76 02/02/2025 10:57 AM EST Pulse 91 02/02/2025 10:57 AM EST Temperature 36.4 ??C (97.6 ??F) 02/02/2025 10:[address] Respiratory Rate 20 02/02/2025 10:57 AM EST Oxygen Saturation - - Inhaled Oxygen Concentration - - Weight 94.8 kg (209 lb) 02/02/2025 10:57 AM EST Height 162.6 cm (5' 4 ) 02/02/2025 10:57 AM EST Body Mass Index 35.87 02/02/2025 10:57 AM EST documented in this encounter Progress Notes * Tiffanie Harvey MD - 02/02/2025 11:00 AM EST SUBJECTIVE: Isauro Manley is a 64 y.o. year old adult who presents for Chronic Disease Management . Acute Concerns: Patient tells me he has not received his Ozempic injections for the past 2 months, he tells me thatwhen he was using his Ozempic he noticed he lost some weight but now he gained it again Social History Social History Narrative Not on file Patient Active Problem List Diagnosis Cervical radiculopathy Chronic ankle pain Essential hypertension Hypertension Neck pain Noncompliance with treatment Obesity Onychomycosis Osteochondritis dissecans Schizoaffective disorder (CMS/HCC) Smoker Tinea pedis Type 2 diabetes mellitus with hyperglycemia, with long-term current use of insulin (CMS/HCC) Chronic right shoulder pain Erectile dysfunction Pre-op evaluation 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 Review of Systems Constitutional: Negative. HENT: Negative. Respiratory: Negative. Cardiovascular: Negative. OBJECTIVE: Vitals: 02/02/25 1057 BP: 133/76 BP Location: Left arm Patient Position: Sitting BP Cuff Size: Large adult Pulse: 91 Resp: 20 Temp: 97.6 ??F (36.4 ??C) TempSrc: Oral Weight: 209 lb (94.8 kg) Height: 5' 4 (1.626 m) Physical Exam Constitutional: Appearance: Normal appearance. Cardiovascular: Rate and Rhythm: Normal rate and regular rhythm. Pulmonary: Effort: Pulmonary effort is normal. Breath sounds: Normal breath sounds. Abdominal: General: Abdomen is flat. Palpations: Abdomen is soft. Musculoskeletal: Right lower leg: No edema. Left lower leg: No edema. Neurological: Mental Status: He is alert. Follow Up: Follow up in about 3 months (around 05/05/2025) for uncontrolled DM . Current Outpatient Medications on File Prior to Visit Medication Sig Dispense Refill Alcohol Swabs (Alcohol Prep) 70 % pads USE TWICE DAILY 100 each 11 amLODIPine (Norvasc) 10 MG tablet TAKE 1/2 TABLET BY MOUTH EVERY MORNING 15 tablet 11 Aspirin Low Dose 81 MG EC tablet TAKE 1 TABLET BY MOUTH AT BEDTIME 90 tablet 3 atorvastatin (Lipitor) 80 MG tablet TAKE 1 TABLET BY MOUTH AT BEDTIME 90 tablet 1 Blood Glucose Monitoring Suppl (FreeStyle Lite) device Test 1 time by intradermal route 2 times everyday 1 each 0 buPROPion XL (Wellbutrin XL) 150 MG 24 hr tablet Take 1 tablet (150 mg) by mouth Once per day. Do not crush, chew, or split. 7 tablet 0 buPROPion XL (Wellbutrin XL) 300 MG 24 hr tablet Take 1 tablet (300 mg) by mouth in the morning. 7 tablet 0 celecoxib (CeleBREX) 200 MG capsule Take 200 mg by mouth 2 times daily. cloNIDine (Catapres) 0.1 MG tablet Take 1 tablet (0.1 mg) by mouth at bedtime. 7 tablet 0 FREESTYLE LITE test strip TEST BLOOD SUGAR TWICE DAILY 50 strip 11 gabapentin (Neurontin) 800 MG tablet TAKE 1 TABLET BY MOUTH THREE TIMES DAILY IN THE MORNING, EVENING, AND BEDTIME 90 tablet 1 glipiZIDE (Glucotrol) 5 MG tablet TAKE 1 TABLET BY MOUTH TWICE DAILY IN THE MORNING AND IN THE EVENING WITH FOOD 180 tablet 1 hydrOXYzine HCl (Atarax) 50 MG tablet Take 1 tablet (50 mg) by mouth at bedtime. 7 tablet 0 insulin glargine (Lantus SoloStar) 100 UNIT/ML pen Inject 30 Units under the skin 2 times daily. 3 mL 12 Jardiance 10 MG TAKE 1 TABLET BY MOUTH EVERY MORNING 30 tablet 11 metFORMIN (Glucophage) 500 MG tablet TAKE 1 TABLET BY MOUTH TWICE DAILY IN THE MORNING AND IN THE EVENING WITH FOOD 180 tablet 1 Pentips 32G X 4 MM misc USE DAILY WITH INSULIN 100 each 11 pioglitazone (Actos) 30 MG tablet TAKE 1 TABLET BY MOUTH EVERY MORNING 90 tablet 1 risperiDONE (RisperDAL) 1 MG tablet Take 1 mg by mouth in the morning. risperiDONE (RisperDAL) 2 MG tablet Take 1 tablet (2 mg) by mouth at bedtime. 7 tablet 0 sildenafil (Viagra) 50 MG tablet Take 1 tablet (50 mg) by mouth if needed each day for erectile dysfunction. 10 tablet 0 TRUEplus Lancets 33G misc TEST BLOOD SUGAR TWICE DAILY 100 each 11 [DISCONTINUED] empagliflozin (Jardiance) 10 MG Take 1 tablet (10 mg) by mouth in the morning. 30 tablet 11 [DISCONTINUED] gabapentin (Neurontin) 800 MG tablet TAKE 1 TABLET BY MOUTH THREE TIMES DAILY IN THEMORNING, EVENING, AND BEDTIME 90 tablet 1 [DISCONTINUED] semaglutide (Ozempic) 2 MG/1.5ML solution pen-injector Inject 0.25 mg under the skin1 (one) time per week. 1 each 12 No current facility-administered medications on file prior to visit. Problem List Items Addressed This Visit Type 2 diabetes mellitus with hyperglycemia, with long-term current use of insulin ([facility]) Diabetes is: not controlled - Lab Results Component Value Date HGBA1C 10.3 (A) 02/02/2025 HGBA1C 6.6 (A) 07/08/2024 HGBA1C 9.2 (A) 02/18/2024 - Lab Results Component Value Date MICROALBUR 2.2 02/12/2022 CREATININE 0.99 03/24/2023 -Changes: I will go up on his Ozempic to 0.5 mg weekly and I will refer this patient to [facility] - Diabetic eye exam: Up-to-date - Diabetic foot exam: Pending - Continue lifestyle modifications - Follow up: 3 months Relevant Medications semaglutide (Ozempic) 2 MG/1.5ML solution pen-injector Other Relevant Orders POCT Glucose (Completed) POCT HGB A1C (Completed) Referral to Pharmacy [facility] Lipid Panel, Standard Albumin, Random Urine W/Creatinine Comprehensive Metabolic Panel Essential hypertension - Primary Blood pressure seems to be under control I advised low-sodium diet and weight reduction I advised cardiovascular exercise Continue with same medications do not skip or miss any dose documented in this encounter Miscellaneous Notes * Assessment & Plan Note - Tiffanie Harvey MD - 02/02/2025 12:18 PM EST Associated Problem(s): Essential hypertension Blood pressure seems to be under control I advised low-sodium diet and weight reduction I advised cardiovascular exercise Continue with same medications do not skip or miss any dose * Assessment & Plan Note - Tiffanie Harvey MD - 02/02/2025 12:17 PM EST Associated Problem(s): Type 2 diabetes mellitus with hyperglycemia, with long- term current use of insulin ([facility]) Diabetes is: not controlled - Lab Results Component Value Date HGBA1C 10.3 (A) 02/02/2025 HGBA1C 6.6 (A) 07/08/2024 HGBA1C 9.2 (A) 02/18/2024 - Lab Results Component Value Date MICROALBUR 2.2 02/12/2022 CREATININE 0.99 03/24/2023 -Changes: I will go up on his Ozempic to 0.5 mg weekly and I will refer this patient to [facility] - Diabetic eye exam: Up-to-date - Diabetic foot exam: Pending - Continue lifestyle modifications - Follow up: 3 months * Addendum Note - Guadalupe Nicholson MA - 02/02/2025 11:00 AM ESTAddended by: GUADALUPE NICHOLSON on: 02/02/2025 12:34 PM Modules accepted: Orders documented in this encounter Plan of Treatment Scheduled Orders Name Type Priority Associated Diagnoses Orde r Schedule Lipid Panel, Standard Lab Routine Type 2 diabetes mellitus with hyperglycemia, with long-term current use of insulin (CMS/[facility]) Expected: 02/02/2025 (Approximate), Expires: 02/02/2026 Albumin, Random Urine W/Creatinine Lab Routine Type 2 diabetes mellitus with hyperglycemia, with long-term current use of insulin (CMS/HCC) Expected: 02/02/2025 (Approximate), Expires: 02/02/2026 Comprehensive Metabolic Panel Lab Routine Type 2 diabetes mellitus with hyperglycemia, with long-term current use of insulin (CMS/HCC) Expected: 02/02/2025 (Approximate), Expires: 02/02/2026 Scheduled Referrals Name Type Priority Associated Diagnoses Orde r Schedule Referral to Pharmacy CD Outpatient Referral Routine Type 2 diabetes mellitus with hyperglycemia, with long-term current use of insulin (CMS/[facility]) Ordered: 02/02/2025 documented as of this encounter Procedures Procedure Name Priority Date/Time Associated Diagnosis Comments POCT GLYCATED HEMOGLOBIN, TOTAL Routine 02/02/2025 10:59 AM EST Type 2 diabetes mellitus with hyperglycemia, with long-term current use of insulin ([facility]) POCT GLUCOSE Routine 02/02/2025 10:58 AM EST Type 2 diabetes mellitus with hyperglycemia, with long-term current use of insulin ([facility]) documented in this encounter Results * (ABNORMAL) POCT HGB A1C (02/02/2025 10:59 AM EST) Hemoglobin A1C 10.3(A) 4.0 - 6.0 % QC Media Lot # [id number] Lot# Expiration Date Blood 02/02/2025 10:5 9 AM EST us Tiffanie Harvey MD POINT OF CARE TEST EN TER/EDIT ORDERABLES Final Result * (ABNORMAL) POCT Glucose (02/02/2025 10:58 AM EST) Glucose Blood, POC 235(A) 60 - 200 mg/dL QC Media Lot # [id number] Lot# Expiration Date Blood Capillary blood specimen / Unknown 02/02/2025 10:58 AM EST Tiffanie Harvey MD POINT OF CARE TEST EN TER/EDIT ORDERABLES Final Result documented in this encounter Visit Diagnoses Diagnosis Essential hypertension- Primary Unspecified essential hypertension Type 2 diabetes mellitus with hyperglycemia, with long-term current use of insulin ([facility]) Encounter for immunization documented in this encounter Additional Health Concerns Assessment Noted Time PHQ-9 Depression Total Score: 8 07/08/20 24 1:37 PM EDT documented as of this encounter Care Teams Controlled Area Checker Relationship Specialty Start Date End Date Tiffanie Yanes MD [address] [place] [address] PCP - General Family Medicine 05/17/20 documented as of this encounter
--- OUTSIDE RECORDS SUMMARY | 2025-02-02 14:02 | XMS_ITS | Encounter Summary ---
Author Organization [employer] Address [address] [facility] [address] [facility] [place] [address] Care Team Providers Care Custom Applicator Name Role Phone Tiffanie Yanes MD Primary Care Provide r Encounter Details Date Type Department Care Team (Late st Contact Info) Description 05/19/2023 Orders Only [facility] [address] [place], [place] [phone] Tammy Rivera LPN Social History Tobacco Use Types Packs/Day Years Used Date Smoking Tobacco: Former Cigarettes Smokeless Tobacco: Never Alcohol Use Standard Drinks/Week Comments Never 0 (1 standard drink = 0.6 oz pur e alcohol) Depression Answer Date Recorded Patient Health Questionnaire-2 [...] Diagnoses Not on filedocumented in this encounter Care Teams Custom Applicator Relationship Specialty Start Date End Date Tiffanie Yanes MD [address] [place] [address] PCP - General Family Medicine 05/17/20 documented as of this encounter
--- OUTSIDE RECORDS SUMMARY | 2025-02-02 14:02 | XMS_ITS | Clinical Summary ---
Author Organization [employer] Address [address] [facility] 7t [place] [address] Care Team Providers Care Magnetic Prospector Name Role Phone Tiffanie Yanes MD Primary Care Provide r Allergies Active Allergy Reactions Criticality Noted Date Comments Penicillin G 09/15/2013 Medications * This document contains information received from the source organization and may not represent a complete record from that organization. Blood Glucose Monitoring Suppl (FreeStyle Lite) deviceIndications :Type 2 diabetes mellitus without complication, without long-term current use of insulin (CMS/HCC) Test 1 time by intradermal route 2 times everyday 1 each 022 Active sildenafil (Viagra) 50 MG tabletIndications :Erectile dysfunction, unspecified erectile dysfunction type Take 1 tablet (50 mg) by mouth if needed each day for erectile dysfunction. 10 tablet 023 Active celecoxib (CeleBREX) 200 MG capsule Take 200 mg by mouth 2 times daily. 023 Active risperiDONE (RisperDAL) 1 MG tablet Take 1 mg by mouth in the morning. 023 Active insulin glargine (Lantus SoloStar) 100 UNIT/ML penIndications:Ty pe 2 diabetes mellitus with hyperglycemia, without long-term current use of insulin (CMS/HCC) Inject 30 Units under the skin 2 times daily. 3 mL 12 024 Active amLODIPine (Norvasc) 10 MG tabletIndications :Essential hypertension TAKE 1/2 TABLET BY MOUTH EVERY MORNING 15 tablet 11 024 Active buPROPion XL (Wellbutrin XL) 300 MG 24 hr tabletIndications :Schizoaffective disorder, unspecified type (CMS/HCC) Take 1 tablet (300 mg) by mouth in the morning. 7 tablet 024 Active cloNIDine (Catapres) 0.1 MG tabletIndications :Schizoaffective disorder, unspecified type (CMS/HCC) Take 1 tablet (0.1 mg) by mouth at bedtime. 7 tablet 024 Active risperiDONE (RisperDAL) 2 MG tabletIndications :Schizoaffective disorder, unspecified type (CMS/HCC) Take 1 tablet (2 mg) by mouth at bedtime. 7 tablet 024 Active hydrOXYzine HCl (Atarax) 50 MG tabletIndications :Schizoaffective disorder, unspecified type (CMS/HCC) Take 1 tablet (50 mg) by mouth at bedtime. 7 tablet 024 Active buPROPion XL (Wellbutrin XL) 150 MG 24 hr tabletIndications :Schizoaffective disorder, unspecified type (CMS/HCC) Take 1 tablet (150 mg) by mouth Once per day. Do not crush, chew, or split. 7 tablet 024 Active Alcohol Swabs (Alcohol Prep) 70 % pads USE TWICE DAILY 100 each Active Pentips 32G X 4 MM misc USE DAILY WITH INSULIN 100 each Active Aspirin Low Dose 81 MG EC tablet TAKE 1 TABLET BY MOUTH AT BEDTIME 90 tablet 3 024 Active FREESTYLE LITE test strip TEST BLOOD SUGAR TWICE DAILY 50 strip Active glipiZIDE (Glucotrol) 5 MG tabletIndications :Type 2 diabetes mellitus with other specified complication, unspecified whether tank terminal gauger insulin use (CMS/HCC) TAKE 1 TABLET BY MOUTH TWICE DAILY IN THE MORNING AND IN THE EVENING WITH FOOD 180 tablet 1 Active metFORMIN (Glucophage) 500 MG tabletIndications :Type 2 diabetes mellitus with other specified complication, unspecified whether tank terminal gauger insulin use (CMS/HCC) TAKE 1 TABLET BY MOUTH TWICE DAILY IN THE MORNING AND IN THE EVENING WITH FOOD 180 tablet 024 Active pioglitazone (Actos) 30 MG tabletIndications :Type 2 diabetes mellitus with hyperglycemia (CMS/HCC) TAKE 1 TABLET BY MOUTH EVERY MORNING 90 tablet 1 024 Active TRUEplus Lancets 33G misc TEST BLOOD SUGAR TWICE DAILY 100 each 11 12/10/2 024 Active atorvastatin (Lipitor) 80 MG tabletIndications :Mixed hyperlipidemia TAKE 1 TABLET BY MOUTH AT BEDTIME 90 tablet 1 Active gabapentin (Neurontin) 800 MG tablet TAKE 1 TABLET BY MOUTH THREE TIMES DAILY IN THE MORNING, EVENING, AND BEDTIME 90 tablet 1 025 Active Jardiance 10 MGIndications:Typ e 2 diabetes mellitus with hyperglycemia, with long-term current use of insulin (CMS/HCC) TAKE 1 TABLET BY MOUTH EVERY MORNING 30 tablet 11 Active semaglutide (Ozempic) 2 MG/1.5ML solution pen-injectorIndic ations:Type 2 diabetes mellitus with hyperglycemia, with long-term current use of insulin (CMS/HCC) Inject 0.5 mg under the skin 1 (one) time per week. 1 each 3 025 Active empagliflozin (Jardiance) 10 MGIndications:Typ e 2 diabetes mellitus with hyperglycemia, with long-term current use of insulin (CMS/HCC) Take 1 tablet (10 mg) by mouth in the morning. 30 tablet 11 024 2024 Discontinued semaglutide (Ozempic) 2 MG/1.5ML solution pen-injectorIndic ations:Type 2 diabetes mellitus with hyperglycemia, with long-term current use of insulin (CMS/HCC) Inject 0.25 mg under the skin 1 (one) time per week. 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 Most of her/his medical conditions are stable enough so that she/he can safely undergo planned procedure. He is a MEDIUM risk patient due to Insulin use. His Diabetes is optimally controlled. He's undergoing a LOW risk procedure. The risk of CV complication according to RCRI is 3.9. At this time HE IS ON OPTIMAL CONDITION for planned procedure. -Meds adjusted for the day of surgery as above. He will hold aspirin starting on 07/14 until 08/12 ( a week after second surgery). He will hold morning dose of Lantus on t he day of the surgery, and all his AM medication, [facility] was called and they will make the changes, Pt will bring his medications this coming Thursday to the pharmacy for the change. -Call back MINDY should he develops fever, cough, SOB, CP, UTI sxs or any other acute issue Chronic right shoulder pain 03/24/2023 Assessment & Plan (06/03/2023 3:40 PM EDT): Continue PT report back after finishing Assessment & Plan (03/24/2023 5:19 PM EDT): XRAY ordered Patient to be contacted with results and plan Erectile dysfunction 03/24/2023 Cervical radiculopathy 02/12/2023 Chronic ankle pain 02/12/2023 Essential hypertension 02/12/2023 Assessment & Plan (02/02/2025 12:18 PM EST): Blood pressure seems to be under control I advised low-sodium diet and weight reduction I advised cardiovascular exercise Continue with same medications do not skip or miss any dose Assessment & Plan (12/10/2023 12:06 PM EST): Maintenance: BMP: up to date Lipid Panel: up to date ASCVD Risk: on atrovastatin 80mg - Aerobic exercise to reduce BP. Initial goal of 30 min walk 3-5x/week. Increase as tolerated. - low-sodium diet (goal: <2g/day) and heart healthy diet such as DASH to reduce BP and prevent ASCVD. - Home BP monitoring 1-2 x day with goal of <140/90. - Seek immediate medical attention for chest pain, palpitations, SOB, syncope, or sudden changes in mental status. - Do not change or discontinue current prescriptions without first consulting health care provider Assessment & Plan (09/29/2023 10:24 AM EDT): - Aerobic exercise to reduce BP. Initial goal of 30 min walk 3-5x/week. Increase as tolerated. - low-sodium diet (goal: <2g/day) and heart healthy diet such as DASH to reduce BP and prevent ASCVD. - Home BP monitoring 1-2 x day with goal of <140/90. - Seek immediate medical attention for chest pain, palpitations, SOB, syncope, or sudden changes in mental status. - Do not change or discontinue current prescriptions without first consulting health care provider Assessment & Plan (06/03/2023 3:39 PM EDT): - Aerobic exercise to reduce BP. Initial goal of 30 min walk 3-5x/week. Increase as tolerated. - low-sodium diet (goal: <2g/day) and heart healthy diet such as DASH to reduce BP and prevent ASCVD. - Home BP monitoring 1-2 x day with goal of <140/90. - Seek immediate medical attention for chest pain, palpitations, SOB, syncope, or sudden changes in mental status. - Do not change or discontinue current prescriptions without first consulting health care provider Assessment & Plan (03/24/2023 5:17 PM EDT): Maintenance: BMP: ordered Lipid Panel: orderd ASCVD Risk: Calculated patient is on max statin - Aerobic exercise to reduce BP. Initial goal of 30 min walk 3-5x/week. Increase as tolerated. - low-sodium diet (goal: <2g/day) and heart healthy diet such as DASH to reduce BP and prevent ASCVD. - Home BP monitoring 1-2 x day with goal of <140/90. - Seek immediate medical attention for chest pain, palpitations, SOB, syncope, or sudden changes in mental status. 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 Type 2 diabetes mellitus wit h hyperglycemia, with long-term current use of insulin 02/12/2023 Assessment & Plan (02/02/2025 12:17 PM EST): Diabetes is: not controlled - Lab Results Component Value Date HGBA1C 10.3 (A) 02/02/2025 HGBA1C 6.6 (A) 07/08/2024 HGBA1C 9.2 (A) 02/18/2024 - Lab Results Component Value Date MICROALBUR 2.2 02/12/2022 CREATININE 0.99 03/24/2023 -Changes: I will go up on his Ozempic to 0.5 mg weekly and I will refer this patient to [facility] - Diabetic eye exam: Up-to-date - Diabetic foot exam: Pending - Continue lifestyle modifications - Follow up: 3 months Assessment & Plan (02/18/2024 1:40 PM EDT): Diabetes is: not controlled - Lab Results Component Value Date HGBA1C 9.2 (A) 02/18/2024 HGBA1C 8.8 (A) 12/10/2023 HGBA1C 6.7 (A) 06/03/2023 - Lab Results Component Value Date MICROALBUR 2.2 02/12/2022 CREATININE 0.99 03/24/2023 -Changes: I will start him on jardiance, I will d/c and start him on ozempic - Diabetic eye exam:up to date - Diabetic foot exam:pending - Continue lifestyle modifications - Follow up: 3 months Assessment & Plan (12/10/2023 12:08 PM EST): Patient admits during holidays he was non complaint with diabetic diet - Lab Results Component Value Date HGBA1C 8.8 (A) 12/10/2023 HGBA1C 6.7 (A) 06/03/2023 HGBA1C 8.2 (A) 03/24/2023 - Lab Results Component Value Date MICROALBUR 2.2 02/12/2022 CREATININE 0.99 03/24/2023 - Diabetic eye exam:up to date - Diabetic foot exam:pending - Continue lifestyle modifications - I changed levemir to lantus because it will be discontinue soon I explain this to patient Assessment & Plan (09/29/2023 10:43 AM EDT): A1c went up again to 8.1 - Lab Results Component Value Date HGBA1C 6.7 (A) 06/03/2023 HGBA1C 8.2 (A) 03/24/2023 HGBA1C 6.7 (H) 05/21/2022 - Lab Results Component Value Date MICROALBUR 2.2 02/12/2022 CREATININE 0.99 03/24/2023 - Diabetic eye exam:up to date - Diabetic foot exam:pending - extensive counseling about diabetic diet done - Continue current medications, I increase his trulicity to 4.5mg weekly Assessment & Plan (06/03/2023 3:41 PM EDT): - Lab Results Component Value Date HGBA1C 6.7 (A) 06/03/2023 HGBA1C 8.2 (A) 03/24/2023 HGBA1C 6.7 (H) 05/21/2022 - Lab Results Component Value Date MICROALBUR 2.2 02/12/2022 CREATININE 0.99 03/24/2023 - - Diabetic eye exam: up to date - Diabetic foot exam: pending - Continue lifestyle modifications - Continue current medications Assessment & Plan (03/24/2023 5:19 PM EDT): - Lab Results Component Value Date HGBA1C 8.2 (A) 03/24/2023 HGBA1C 6.7 (H) 05/21/2022 HGBA1C 6.6 (H) 02/12/2022 - Lab Results Component Value Date MICROALBUR 2.2 02/12/2022 CREATININE 0.96 05/25/2021 - Diabetic eye exam: up to date - Diabetic foot exam: done today - Continue lifestyle modifications I increase his trulicity to 3mg weekly Noncompliance with treatment 04/12/2018 Tinea pedis 05/05/2013 Hypertension 05/13/2012 Assessment & Plan (02/18/2024 1:41 PM EDT): - Aerobic exercise to reduce BP. Initial goal of 30 min walk 3-5x/week. Increase as tolerated. - low-sodium diet (goal: <2g/day) and heart healthy diet such as DASH to reduce BP and prevent ASCVD. - Home BP monitoring 1-2 x day with goal of <140/90. - Seek immediate medical attention for chest pain, palpitations, SOB, syncope, or sudden changes in mental status. - Do not change or discontinue current prescriptions without first consulting health care provider Smoker 05/13/2012 Schizoaffective disorder 01/05/2008 Encounters Date Type Department Care Team Description 02/02/2025 11:00 AM EST Office Visit [facility] [address] [place], [place] [phone] Tiffanie Yanes MD Essential hypertension (Primary Dx); Type 2 diabetes mellitus with hyperglycemia, with long-term current use of insulin ([facility]); Encounter for immunization 02/02/2025 Travel 02/01/2025 Telephone [facility] [address] [place], [place] [phone] Tiffanie Yanes MD Chart Prep 01/29/2025 Refill [facility] [address] [place] [address] Tiffanie Yanes MD Type 2 diabetes mellitus with hyperglycemia, with long-term current use of insulin ([facility]) 11/21/2024 Refill [facility] [address] [place] [address] Tiffanie Yanes MD Mixed hyperlipidemia 11/12/2024 Refill [facility] [address] [place] [address] Tiffanie Yanes MD 11/08/2024 Refill [facility] [address], [place] [phone] Tiffanie Yanes MD from Last 3 Months Immunizations Name Administration Dates Next Due Hep B, adult 02/28/2008,10/27/2007,02/16/2007 Influenza injectable quadriv alent preservative free 09/29/2023,11/19/2021,09/30/2017,09/30 Influenza, Split (incl. praveen fied surface antigen) 09/15/2013 Influenza, seasonal, injecta ble, preservative free 02/02/2025,08/12/2015 Pneumococcal Conjugate PCV 20 02/18/2024 Pneumococcal Polysaccharide PPSV23 05/16/2008 RSV Bivalent 12/16/2023 TD (adult), 2 Lf tetanus tox oid, preservative free, adsorbed 04/20/2006 Tdap 06/16/2022 Zoster, Recombinant 08/18/2022,06/16/2022 Social History Tobacco Use Types Packs/Day Years Used Date Smoking Tobacco: Former Cigarettes Passive Smoke Exposure: Past Smokeless Tobacco: Never Tobacco Cessation:Counseling Given: Not Answered Alcohol Use Standard Drinks/Week Comments Never 0 [...] not to disclose 2021 10:17 AM EDT Last Filed Vital Signs Vital Sign Reading Time Taken Comments Blood Pressure 133/76 02/02/2025 10:57 AM EST Pulse 91 02/02/2025 10:57 AM EST Temperature 36.4 ??C (97.6 ??F) 02/02/2025 10:[address] Respiratory Rate 20 02/02/2025 10:57 AM EST Oxygen Saturation 99% 07/08/2024 1:33 PM EDT Inhaled Oxygen Concentration - - Weight 94.8 kg (209 lb) 02/02/2025 10:57 AM EST Height 162.6 cm (5' 4 ) 02/02/2025 10:57 AM EST Body Mass Index 35.87 02/02/2025 10:57 AM EST Plan of Treatment Health Maintenance Due Date Last Done Comments CT Colonography 1960 Colonoscopy 1960 Colorectal Cancer Screening 1960 Dental Oral Exam 1960 Dental Prophylaxis 1960 FIT DNA/Cologuard 1960 FIT 1960 FOBT 1960 HIV Screening 1960 Sigmoidoscopy 1960 Diabetes: Foot Exam 1970 Hepatitis C Screening 1978 Dental X-Ray: Bitewings 11/07/2009 11/06/2008 Diabetes: Urine Protein Screening 03/24/2024 03/24/2023, 02/12/2022, 12/19/2020 Lipid Panel 03/24/2024 03/24/2023, 02/12/2022 COVID-19 Vaccine ( season) 2024 10/08/2021, 03/11/2021 Diabetes: Hemoglobin A1C 05/05/2025 025, 07/08/2024, 02/18/2024, Additional history exists Depression Screening 07/08/2025 07/08/2024, 07/08/20 Alcohol/Substance Use Screening 02/02/2026 02/02/2025 SDOH Screening 02/02/2026 02/02/2025 Tobacco Screening 02/02/2026 02/02/2025 Eye Exam 05/23/2026 05/23/2024, 05/01, 05/23/2024, Additional history exists Dental X-Ray: Full Mouth 09/01/2027 024, 04/17/2010, 11/06/2008 DTaP/Tdap/Td Vaccines (2 - Td or Tdap) 06/16/2032 06/16/2022, 04/20/2006 Hepatitis B Vaccines Completed 02/28/2008, 10/27/2007, 02/16/2007 Zoster Vaccines Completed 08/18/2022, 06/16/2022 RSV Patients and Patients Aged 60 years or older Completed 12/16/2023 Pneumococcal Vaccine: 50+ Years Completed 02/18/2024, 05/16/2008 Influenza Vaccine Completed 02/02/2025, , 11/19/2021, Additional history exists HIB Vaccines Aged Out No longer eligi ble based on patient's age to complete this topic HPV Vaccines Aged Out No longer eligi ble based on patient's age to complete this topic Hepatitis A Vaccines Aged Out No long er eligible based on patient's age to complete this topic IPV Vaccines Aged Out No longer eligi ble based on patient's age to complete this topic Meningococcal Vaccine Aged Out No judith elijah eligible based on patient's age to complete this topic RSV under 20 months Aged Out No longe r eligible based on patient's age to complete this topic Rotavirus Vaccines Aged Out No longer eligible based on patient's age to complete this topic Procedures Procedure Name Priority Date/Time Associated Diagnosis Comments POCT GLYCATED HEMOGLOBIN, TOTAL Routine 02/02/2025 10:59 AM EST Type 2 diabetes mellitus with hyperglycemia, with long-term current use of insulin ([facility]) POCT GLUCOSE Routine 02/02/2025 10:58 AM EST Type 2 diabetes mellitus with hyperglycemia, with long-term current use of insulin ([facility]) PANORAMIC RADIOGRAPHIC IMAGE Routine 08/31/2024 9:00 AM EDT ALBUMIN, RANDOM URINE W/O CREATININE Routine 03/24/2023 3:17 PM EDT Type 2 diabetes mellitus with hyperglycemia, with long-term current use of insulin ([facility]) LIPID PANEL, STANDARD Routine 03/24/2023 3:17 PM EDT Essential hypertension Type 2 diabetes mellitus with hyperglycemia, with long-term current use of insulin ([facility]) INTRAORAL - COMPLETE SERIES OF RADIOGRAPHIC IMAGES Routine 11/06/2008 12:00 AM EST from Last 3 Months or Most Recently Relevant to Health Maintenance Results * (ABNORMAL) POCT HGB A1C (02/02/2025 10:59 AM EST) Hemoglobin A1C 10.3(A) 4.0 - 6.0 % QC Media Lot # [id number] Lot# Expiration Date ,026 Blood 02/02/2025 10:5 9 AM EST us Tiffanie Harvey MD POINT OF CARE TEST EN TER/EDIT ORDERABLES Final Result * (ABNORMAL) POCT Glucose (02/02/2025 10:58 AM EST) Glucose Blood, POC 235(A) 60 - 200 mg/dL QC Media Lot # [id number] Lot# Expiration Date [id number] Blood Capillary blood specimen / Unknown 02/02/2025 10:58 AM EST us Tiffanie Harvey MD POINT OF CARE TEST EN TER/EDIT ORDERABLES Final Result * Albumin, Random Urine W/O Creatinine (03/24/2023 3:17 PM EDT) Albumin, Urine 5.5 See Note: mg/dL [email or web address] Comment: Reference Range: Reference Range Not established ALIREZA [facility] [place] [email or web address] Comment: The ADA defines abnormalities in albumin excretion as follows: Albuminuria Category ? Result (mcg/mg creatinine) Normal to Mildly increased ?<30 Moderately increased ?30-299 Severely increased ?> OR = 300 The ADA recommends that at least two of three specimens collected within a 3-6 month period be abnormal before considering a patient to be within a diagnostic category. Urine Urine specimen obtained by clean catch procedure / Unknown 03/24/2023 3:17 PM EDT 03/24/2023 3:17 PM EDT Narrative [facility] - 03/25/2023 6:52 PM EDT FASTING:NO FASTING: NO Tiffanie Harvey MD LAB URINE ORDERABLES Final Result [facility] [address], [place] [address] [facility] [address] [place] [address] * Lipid Panel, Standard (03/24/2023 3:17 PM EDT) Cholesterol, Total 142 <200 mg/dL [facility] HDL Cholesterol 60 > OR = 40 mg/dL [facility] Triglycerides 99 <150 mg/dL [facility] LDL Cholesterol 64 mg/dL (calc) [facility] Comment: Reference range: <100 Desirable range <100 mg/dL for primary prevention; ?? <70 mg/dL for patients with CHD or diabetic patients with > or = 2 CHD risk factors. LDL-C is now calculated using the Darrell-Truong calculation, which is a validated novel method providing better accuracy than the Friedewald equation in the estimation of LDL-C. Darrell RDZ et al. ANTONIO. 2013;310(19): 6719-7545 (http://education.[employer].ArcMail/faq/QRC458) Chol/HDLC Ratio 2.4 <5.0 (calc) [facility] Non-HDL Cholesterol 82 <130 mg/dL (calc) [facility] Comment: For patients with diabetes plus 1 major ASCVD risk factor, treating to a non-HDL-C goal of <100 mg/dL (LDL-C of <70 mg/dL) is considered a therapeutic option. Blood Venous blood specimen / Unknown 03/24/2023 3:17 PM EDT 03/24/2023 3:17 PM EDT Narrative [facility] - 03/25/2023 6:52 PM EDT FASTING:NO FASTING: NO Tiffanie Harvey MD LAB BLOOD ORDERABLES Final Result [facility] [address], [place] [address] [facility] [address] [place] [address] from Last 3 Months or Most Recently Relevant to Health Maintenance Insurance [facility] Care Teams Magnetic Prospector Relationship Specialty Start Date End Date Tiffanie Yanes MD [address] [place] [id number] PCP - General Family Medicine 05/17/20
--- OUTSIDE RECORDS SUMMARY | 2025-02-02 14:02 | XMS_ITS | Encounter Summary ---
Author Organization [employer] Address [address] [facility] [address] [place] [address] Care Team Providers Care Hands And Dial Inspector Name Role Phone Tiffanie Yanes MD Primary Care Provide r Encounter Details Date Type Department Care Team (Latest Contact Info) Description 02/02/2025 Travel Social History Tobacco Use Types Packs/Day Years [...] documented as of this encounter Care Teams Hands And Dial Inspector Relationship Specialty Start Date End Date Tiffanie Yanes MD [address] [place] [address] PCP - General Family Medicine 05/17/20 documented as of this encounter
--- OUTSIDE RECORDS SUMMARY | 2025-02-02 14:02 | XMS_ITS | Encounter Summary ---
Author Organization [employer] Address [address] [facility] [address] [place] [address] Care Team Providers Care Film Washer Name Role Phone Tiffanie Yanes MD Primary Care Provide r Reason for Visit * Reason Onset Date Comments Med Refill 01/19/2024 Encounter Details Date Type Department Care Team ([facility] st Contact Info) Description 01/19/2024 Telephone [facility] [address] [place], [place] [phone] Tiffanie Yanes MD [address] [place], [place] [phone] Med Refill Social History Tobacco Use Types Packs/Day Years [...] t he electric, gas, oil or water [employer] threatened to shut off services in your [...] encounter Miscellaneous Notes * Telephone Encounter - Tammy Rivera LPN - 01/19/2024 2:12 PM EST Medication is prescribed by Marcy Conn. * Telephone Encounter - Boogie Lenz - 01/19/2024 1:54 PM EST TC from pt requesting medication refill. Medications needing refill: buPROPion XL (Wellbutrin XL) 300 MG 24 hr tablet, hydrOXYzine HCl (Atarax) 50 MG tablet, risperiDONE (RisperDAL) 2 MG tablet, and cloNIDine (Catapres) 0.1 MG tablet To be sent to: [facility] documented in this encounter Plan of Treatment Not on file documented as of this encounter Visit Diagnoses Not on filedocumented in this encounter Care Teams Film Washer Relationship Specialty Start Date End Date Tiffanie Yanes MD [address] [place] [id number] PCP - General Family Medicine 05/17/20 documented as of this encounter
--- OUTSIDE RECORDS SUMMARY | 2025-02-02 14:02 | XMS_ITS | Encounter Summary ---
Author Organization [employer] Address [address] [place] [address] Care Team Providers Care Geosciences Associate Professor Name Role Phone Tiffanie Yanes MD Primary Care Provide r Reason for Visit * Reason Comments Med Refill Encounter Details Date Type Department Care Team ([facility] st Contact Info) Description 01/29/2025 Refill [facility] [address] [place], [place] [phone] Tiffanie Yanes MD [address] [place], [place] [phone] Type 2 diabetes mellitus with hyperglycemia, with long-term current use of insulin ([facility]) Social History Tobacco Use Types Packs/Day Years [...] is your housing situation today? I have hsayy shin 09/16/[address] you [...] Recorded Patient Health Questionnaire-2 Score 2 07/08/2024 Sex and Gender Information Value Date Recorded [...] hyperglycemia, with long-term current use of insulin ([facility]) documented in this encounter Additional Health Concerns Assessment Noted Time PHQ-9 Depression Total Score: 8 07/08/20 24 1:37 PM EDT documented as of this encounter Care Teams Geosciences Associate Professor Relationship Specialty Start Date End Date Tiffanie Yanes MD [address] [place] [id number] PCP - General Family Medicine 05/17/20 documented as of this encounter
[2025-02-02 14:05] LABS: Alanine Aminotransferase 13 U/L (0-40); Albumin Level 3.6 g/dL (3.5-5.0); Alkaline Phosphatase 130 U/L (39-117); Anion Gap 11 (12-20); Aspartate Amino Transferase 28 U/L (5-37); Bilirubin Total 0.4 mg/dL (0.0-1.0); Blood Urea Nitrogen 14 mg/dL (9-16); Calcium 8.7 mg/dL (8.4-10.2); Carbon Dioxide 24 mmol/L (22-29); Chloride 108 mmol/L (96-108); Cholesterol 191 mg/dL (<200); Estimated Glomerular Filt Rate 50; Glucose Random 268 mg/dL (60-115); HDL Cholesterol 42 mg/dL (>40); LDL Cholesterol Calculated 124 mg/dL (<100); Potassium 4.6 mmol/L (3.3-5.1); Sodium 138 mmol/L (135-145); Total Protein 6.8 g/dL (6.5-8.0); Triglycerides 128 mg/dL (<150)
[2025-02-02 14:44] LABS: Creatinine Urine 44.48 mg/dL; Microalbumin Urine < 5.0 mg/L
== END 2025-02-02 11:25 | disposition home or self-care (01) ==
LOC: HO.HHCL 11:24
PROVIDERS: Visit Provider Internal Medicine
DX: E11.65 Type 2 diabetes mellitus with hyperglycemia (principal); Z79.4 Long term (current) use of insulin
CPT/HCPCS: 36415; 80053; 80061; 82043; 82570

== ENCOUNTER 2025-02-14 11:08 | Emergency (ER) | payer OTHER, SELFPAY ==
--- NOTE | ~2025-02-14 | XR_ITS ---
EXAMINATION: XR CHEST 1 VIEW HISTORY: cough COMPARISON: Comparison is made with the prior examination dated 03/22/2025. FINDINGS: A single PA view of the chest is submitted. Again seen is elevation of the right hemidiaphragm with adjacent subsegmental atelectasis versus scarring. The lungs are otherwise clear. There is no pleural effusion, pneumothorax, or pulmonary vascular congestion. The heart is normal in size. There is degenerative disc disease of the spine. XR/XR chest 1V IMPRESSION: No acute cardiopulmonary abnormality. Electronically signed by: Jhon Bishop MD 02/14/2025 11:37 AM EDT
[2025-02-14 11:11] VITALS: BP 159/88; PULSE 88; RESP 20; TEMP 36.6; O2SAT 97; BMI 33.4
--- NOTE | 2025-02-14 11:18 | ED.GENADULT ---
HPI - General Adult General Chief complaint: Dyspnea Stated complaint: Cough, SOB Time Seen by Provider: 02/14/25 12:11 Source: patient and RN notes reviewed Mode of arrival: ambulatory Limitations: no limitations History of Present Illness ED Provider: Rosy Pittman PA-C HPI narrative: This is a 64-year-old male, with a past medical history of diabetes, hypertension, schizoaffective disorder, who presents emergency department with concerns for cough and congestion. Patient states that on February 02 he had his influenza vaccine and then developed a productive cough, congestion. He denies any chest pain, shortness for breath. He denies any lower extremity swelling. Denies any palpitations. His is sick with similar symptoms. He has been drinking tea with lemon however this is not helping him with any of his symptoms. He is a former smoker. Cough keeps him up at night. No other complaints or concerns at this time. MD complaint: Shortness for breath, cough, congestion Onset (ago): day(s) Severity: moderate Quality: aching Pain Consistency: constant Relieving factors: none Exacerbating factors: none Associated symptoms: cough, fever/chills and headaches Treatments prior to arrival: none Related Data Home Medications ?Medication ?Instructions ?Recorded ?Confirmed atorvastatin 40 mg tablet 40 mg PO BEDTIME 10/27/22 bupropion HCl 150 mg 24 hr tablet, 150 mg PO QAM 10/27/22 extended release bupropion HCl 300 mg 24 hr tablet, 300 mg PO QAM 10/27/22 extended release dulaglutide 0.75 mg/0.5 mL mg subcut QWEEK 10/27/22 subcutaneous pen injector (Trulicity) dulaglutide 1.5 mg/0.5 mL 1.5 mg subcut QWEEK 10/27/22 subcutaneous pen injector (Trulicity) gabapentin 800 mg tablet 800 mg PO QID 10/27/22 glipizide 5 mg tablet 5 mg PO DAILY 10/27/22 insulin detemir U-100 100 unit/mL 30 unit subcut BID 10/27/22 (3 mL) subcutaneous pen (Levemir FlexTouch U-100 Insulin) metformin 1,000 mg tablet 1,000 mg PO BID 10/27/22 metformin 500 mg tablet 500 mg PO BID 10/27/22 risperidone 2 mg tablet 2 mg PO BEDTIME 10/27/22 Previous Rx's ?Medication ?Instructions ?Recorded [id number]-wqosyaosopamn-dwesfrbt 1 cap PO Q6H PRN migraine #7 caps 05/25/21 50 mg-300 mg-40 mg capsule (Fioricet) prednisone 20 mg tablet 20 mg PO DAILY 7 days #7 tabs 11/26/22 celecoxib 200 mg capsule 200 mg PO BID #60 caps 09/08/23 azithromycin 250 mg tablet 250 mg PO DAILY 4 days #4 tabs 02/14/25 azithromycin 250 mg tablet See Rx Instructions PO .COMPLEX #6 02/14/25 tabs benzonatate 100 mg capsule 100 mg PO TID PRN cough 7 days #20 02/14/25 caps Allergies Allergy/AdvReac Type Severity Reaction Status Date / Time penicillin V Allergy Unknown Itching Verified 02/14/25 11:14 No Known Allergies [NKA] Allergy Verified 02/14/25 11:14 [facility] Past Medical History Medical History Cervical radiculopathy Diabetes Diabetes mellitus, type II HTN (hypertension) Noncompliance with diabetes treatment Osteochondritis Schizoaffective disorder Tinea pedis Tinea pedis of both feet Social History Social History (Updated 04/24/23 @ 11:20 by BHUMIKA Gutierrez) Alcohol intake: former Patient Tobacco Use Status: Former Tobacco user Advance Directives: No Advance Directives Information Provided: Yes Do you have a plan to hurt others: No Plan Current occupational status: disabled Current occupation: ambidextrous Physical Exam ED Vital Signs: Vital Signs - 24 hr 02/14/25 11:11 02/14/25 14:29 02/14/25 16:40 Temperature 97.8 F 98.6 F 98.6 F Pulse Rate 88 72 72 Respiratory Rate 20 18 18 Blood Pressure 159/88 H 129/85 129/85 Pulse Oximetry 97 97 97 Oxygen Delivery Method Room Air Room Air Room Air BMI result Body Mass Index 33.4 Course Course Course Narrative: This is a rapid medical exam performed by Albina Ortiz PA-C. The patient is a 64-year-old male with a history of hyperlipidemia, diabetes, presents with cough and cold symptoms times 12 days. We will be obtaining basic labs a viral panel and a chest x-ray. The patient was hemodynamically stable and is able to return to the waiting room pending his full medical assessment. Medications Administered Discontinued Medications Generic Name Dose Route Start Last Admin Trade Name Isaac PRN Reason Stop Dose Admin Azithromycin 500 mg 02/14/25 16:27 02/14/25 16:37 Azithromycin 500 Mg Tablet PO 02/14/25 16:28 500 mg ONCE ONE Administration Benzonatate 100 mg 02/14/25 16:31 02/14/25 16:37 Benzonatate 100 Mg Capsule PO 02/14/25 16:32 100 mg ONCE ONE Administration Medical Decision Making Medical Decision Making [facility] Narrative: This is a 64 y/o M here with complaints of cough, congestion x 2 weeks. Reports productive cough with white colored sputum. On arrival, vital signs wnl, he is speaking in full sentences in no acute distress. Lungs are clear to auscultation BL. No pedal edema. He reports no chest pain, pressure, or palpitations. He is not short of breath. Labs, EKG, chest xray were ordered prior to my assessment. Viral swabs are negative, cxr negative for pneumonia. Labs with no leukocytosis, stable H&H,Chemistry with no electrolyte derangements. DDX including viral URI, bronchitis, pneumonia. Less likely PE as he has no CP or SOB. Less likely ACS. EKG NSR with no STEMI. Trop < 2.7. BNP WNL. Discussed overall workup with patient and at bedside. Given former smoker hx, will trial abx for coverage of possible COPD exacerbation given hx of smoking - no known hx of COPD. Lungs are CTAB. Given return precautions. Pt stable for d.c. Differential Diagnosis Differential Diagnoses: The differential diagnosis associated with the presentation includes See above Lab Data [facility] Lab Attestation statement: I reviewed the patient's lab results. see [facility] 02/14/25 11:22 02/14/25 11:22 Labs: Lab Results 02/14/25 Range/Units 11:22 WBC 9.7 (4.8-10.8) X10*3/uL RBC 5.99 H (4.60-5.80) X10*6/uL Hgb 16.7 (14.0-18.0) g/dl Hct 51.0 (42.0-52.0) % MCV 85.1 (80.0-98.0) fL MCH 27.9 (27.0-33.0) pg MCHC 32.7 (31.0-36.0) g/dl RDW 13.4 (11.0-16.0) % Plt Count 289 (160-400) X10*3/uL MPV 9.7 (9.4-12.4) fL Immature Gran % (Auto) 0.2 (0.0-0.4) % Neut % (Auto) 61.6 (45-73) % Lymph % (Auto) 19.4 L (20-40) % Baxter % (Auto) 13.6 H (2-11) % Eos % (Auto) 4.0 (0-4) % Baso % (Auto) 1.2 (0-2) % Lymph # (Auto) 1.9 (1.2-4.9) X10*3/uL Baxter # (Auto) 1.3 H (0.1-1.2) X10*3/uL Eos # (Auto) 0.4 (0.0-0.4) X10*3/uL Baso # (Auto) 0.1 (0.0-0.2) X10*3/uL Abs Immat Gran (auto) 0.02 (0.00-0.03) X10*3/uL Absolute Neuts (auto) 6.0 (2.0-8.3) x10*3/uL Absolute Nucleated RBC 0.000 (0.0-0.012) X10*3/uL Nucleated RBC % (auto) 0.0 (0.0-0.2) /100WBC Sodium 138 (135-145) mmol/L Potassium 4.3 (3.3-5.1) mmol/L Chloride 106 (96-108) mmol/L Carbon Dioxide 24 (22-29) mmol/L Anion Gap 12 (12-20) BUN 11 (9-16) mg/dL Creatinine 1.05 (0.5-1.4) mg/dL Estim Creat Clear Calc 71.2 Estimated GFR > 60 Random Glucose 189 H (60-115) mg/dL Calcium 9.5 D (8.4-10.2) mg/dL Magnesium 1.8 (1.6-2.6) mg/dL Total Bilirubin 0.6 (0.0-1.0) mg/dL Direct Bilirubin 0.2 (0.0-0.5) mg/dL AST 22 (5-37) U/L ALT 20 (0-40) U/L Alkaline Phosphatase 169 H (39-117) U/L Troponin I High Sens < 2.7 (<3.5-35.0) ng/L B-Natriuretic Peptide 13 (<100) pg/mL Total Protein 7.9 (6.5-8.0) g/dL Albumin 4.1 (3.5-5.0) g/dL Influenza Type A (PCR) NEGATIVE (Negative) Influenza Type B (PCR) NEGATIVE (Negative) RSV RNA Qual (PCR) NEGATIVE (Negative) SARS-CoV-2 RNA (RT-PCR) NEGATIVE (Negative) Independent Interpretation I performed an independent interpretation of an: EKG Interpretation: NSR 86BPM with no ST elevation depression Radiology Impression Discussion of test interpretation with radiology: I have reviewed the radiologist's reading. Radiologist Impression: EXAMINATION: XR CHEST 1 VIEW HISTORY: cough COMPARISON: Comparison is made with the prior examination dated 03/22/2025. FINDINGS: A single PA view of the chest is submitted. Again seen is elevation of the right hemidiaphragm with adjacent subsegmental atelectasis versus scarring. The lungs are otherwise clear. There is no pleural effusion, pneumothorax, or pulmonary vascular congestion. The heart is normal in size. There is degenerative disc disease of the spine. XR/XR chest 1V IMPRESSION: No acute cardiopulmonary abnormality. Electronically signed by: Jhon Bishop MD 02/14/2025 11:37 AM EDT Dictated By: Jhon Bishop MD Discharge Plan Discharge Clinical Impression: Upper respiratory infection Patient Disposition: Home, Self-Care Instructions: Upper Respiratory Infection (ED) Additional Instructions: You were seen in the emergency department today. You are blood work was reassuring today. Your chest x-ray does not show a pneumonia. Your viral swabs were negative for COVID, flu, RSV. You likely have a virus that is causing you to have the symptoms however we will treat you for a for respiratory infection. Please take prescribed antibiotic as directed. Finish the entire course even if your symptoms improve. Drink plenty of fluids get plenty of rest. Alternate between ibuprofen and or Tylenol as needed for pain and symptoms. If any new or worsening symptoms occur including but not limited to severe chest pain, shortness of breath, please seek emergent care. Prescriptions: New azithromycin 250 mg tablet See Rx Instructions .ROUTE .COMPLEX Qty: 6 0RF Rx Instructions: For 250 mg dose pack: take 500 mg today (day 1), then 250 mg for 4 days (days 2-5) azithromycin 250 mg tablet 250 mg PO DAILY 4 Days Qty: 4 0RF Rx Instructions: start on day 2 of therapy benzonatate 100 mg capsule 100 mg PO TID PRN (Reason: cough) 7 Days Qty: 20 0RF No Action celecoxib 200 mg capsule 200 mg PO BID Qty: 60 3RF qmsbuexmnq-xnwsmlfqaqmdy-pwvd [Fioricet] 50-300-40 mg capsule 1 cap PO Q6H PRN (Reason: migraine) Qty: 7 0RF prednisone 20 mg tablet 20 mg PO DAILY 7 Days Qty: 7 0RF metformin 500 mg tablet 500 mg PO BID Trulicity 1.5 mg/0.5 mL pen injector 1.5 mg subcut QWEEK glipizide 5 mg tablet 5 mg PO DAILY bupropion HCl 150 mg tablet extended release 24 hr 150 mg PO QAM bupropion HCl 300 mg tablet extended release 24 hr 300 mg PO QAM risperidone 2 mg tablet 2 mg PO BEDTIME Trulicity 0.75 mg/0.5 mL pen injector subcut QWEEK Levemir FlexTouch U100 Insulin 100 unit/mL (3 mL) insulin pen 30 unit subcut BID gabapentin 800 mg tablet 800 mg PO QID metformin 1,000 mg tablet 1,000 mg PO BID atorvastatin 40 mg tablet 40 mg PO BEDTIME Interventions: ED Discharge Assessment Last Done: 02/14/25 16:40 Discharge Date/Time: 02/14/25 16:40 Print Language: Serbian
--- NOTE | 2025-02-14 11:23 | ECG_ITS ---
Test Reason : dyspnea Blood Pressure : */* mmHG Vent. Rate : 86 BPM Atrial Rate : 86 BPM P-R Int : 168 ms QRS Dur : 70 ms QT Int : 340 ms P-R-T Axes : 57 66 81 degrees QTcB Int : 406 ms Normal sinus rhythm Normal ECG When compared with ECG of 04-Dec-2008 07:09, No significant change was found Referred By: Mary Diaz Electronically Signed By: Jovani Mejia
[2025-02-14 11:28] LABS: MANUAL DIFF FLAG NO
[2025-02-14 11:35] LABS: Basophils Absolute Auto 0.1 X10*3/uL (0.0-0.2); Basophils Percent Auto 1.2 % (0-2); Eosinophils Absolute Auto 0.4 X10*3/uL (0.0-0.4); Hemoglobin 16.7 g/dl (14.0-18.0); Imm Gran Abs Auto 0.02 X10*3/uL (0.00-0.03); Imm Gran Pct Auto 0.2 % (0.0-0.4); Lymphocytes Absolute Auto 1.9 X10*3/uL (1.2-4.9); Lymphocytes Percent Auto 19.4 % (20-40); Mean Corpuscular HGB Conc 32.7 g/dl (31.0-36.0); Mean Corpuscular Hemoglobin 27.9 pg (27.0-33.0); Mean Corpuscular Volume 85.1 fL (80.0-98.0); Mean Platelet Volume 9.7 fL (9.4-12.4); Monocytes Absolute Auto 1.3 X10*3/uL (0.1-1.2); Monocytes Percent Auto 13.6 % (2-11); Neutrophils Percent Auto 61.6 % (45-73); Platelet Count 289 X10*3/uL (160-400); Red Blood Count 5.99 X10*6/uL (4.60-5.80); Red Cell Distribution Width 13.4 % (11.0-16.0); White Blood Count 9.7 X10*3/uL (4.8-10.8)
[2025-02-14 11:43] LABS: Anion Gap 12 (12-20); Blood Urea Nitrogen 11 mg/dL (9-16); Calcium 9.5 mg/dL (8.4-10.2); Carbon Dioxide 24 mmol/L (22-29); Chloride 106 mmol/L (96-108); Creatinine Clr Calc Pharmacy 71.2; Estimated Glomerular Filt Rate > 60; Glucose Random 189 mg/dL (60-115); Potassium 4.3 mmol/L (3.3-5.1); Sodium 138 mmol/L (135-145)
[2025-02-14 12:08] LABS: Influenza A PCR NEGATIVE (Negative); Influenza B PCR NEGATIVE (Negative); Resp Syncy Virus RNA Qual PCR NEGATIVE (Negative); SARS COV2 PCR INHOUSE NEGATIVE (Negative)
[2025-02-14 12:56] LABS: B Type Natriuretic Peptide 13 pg/mL (<100); Troponin-I High Sensitivity < 2.7 ng/L (<3.5-35.0)
[2025-02-14 14:29] VITALS: BP 129/85; PULSE 72; RESP 18; TEMP 37; O2SAT 97
[2025-02-14 15:59] LABS: Alanine Aminotransferase 20 U/L (0-40); Albumin Level 4.1 g/dL (3.5-5.0); Alkaline Phosphatase 169 U/L (39-117); Aspartate Amino Transferase 22 U/L (5-37); Bilirubin Direct 0.2 mg/dL (0.0-0.5); Bilirubin Total 0.6 mg/dL (0.0-1.0); Magnesium 1.8 mg/dL (1.6-2.6); Total Protein 7.9 g/dL (6.5-8.0)
[2025-02-14] MEDS: Azithromycin 500 MG TABLET PO (16:37)
[2025-02-14] MEDS: Benzonatate 100 MG CAPSULE PO (16:37)
[2025-02-14 16:40] VITALS: BP 129/85; PULSE 72; RESP 18; TEMP 37; O2SAT 97
== END 2025-02-14 16:40 | disposition home or self-care (01) ==
PROVIDERS: Physician Assistant Medical; Emergency Provider Emergency Medicine Emergency Medical Services; PCP Internal Medicine
DX: J06.9 Acute upper respiratory infection, unspecified (principal); R05.9 Cough, unspecified; R06.02 Shortness of breath; E11.9 Type 2 diabetes mellitus without complications; I10 Essential (primary) hypertension; F25.9 Schizoaffective disorder, unspecified; Z79.899 Other long term (current) drug therapy
CPT/HCPCS: 0241U; 71045; 80048; 80076; 83735; 83880; 84484; 85025; 93005; 99283; 99284

== ENCOUNTER → 2025-02-14 11:17 | Outpatient (BNV) | payer OTHER, SELFPAY | PROVIDERS: PCP Internal Medicine; Visit Provider Radiology Diagnostic Radiology | DX: R05.9 Cough, unspecified (principal) | CPT/HCPCS: 71045 ==

== ENCOUNTER → 2025-02-14 11:23 | Outpatient (BNV) | payer OTHER, SELFPAY | PROVIDERS: Emergency Provider Emergency Medicine Emergency Medical Services; PCP Internal Medicine; Visit Provider Internal Medicine Cardiovascular Disease | DX: R06.00 Dyspnea, unspecified (principal) | CPT/HCPCS: 93010 ==

== ENCOUNTER 2025-05-02 15:26 | Emergency (ER) | payer OTHER, SELFPAY ==
--- NOTE | ~2025-05-02 | US_ITS ---
EXAMINATION: US TRIPLEX LOWER EXTREMITY, LEFT CLINICAL INFORMATION: Left lower extremity pain COMPARISON: None available. TECHNIQUE: Color-flow triplex imaging with spectral analysis and compression Doppler were performed on the left lower extremity. FINDINGS: Respiratory variation, normal compression and augmented flow are noted throughout the left lower extremity. The visualized common femoral vein, superficial femoral vein, profunda femoral vein, popliteal vein and midcalf peroneal and posterior tibial venous segments show no evidence of deep venous thrombosis. There is no Montoya's cyst. US/US venous duplex LE LT IMPRESSION: No evidence of deep venous thrombosis involving the left lower extremity. Electronically signed by: Keyshawn Coello MD 05/02/2025 05:26 PM EDT
[2025-05-02 16:01] VITALS: BP 132/90; PULSE 97; RESP 18; TEMP 36.3; O2SAT 95; BMI 35.2
--- NOTE | 2025-05-02 16:03 | ED.GENADULT ---
HPI - General Adult General Chief complaint: Extremity Problem Stated complaint: L foot pain Time Seen by Provider: 05/02/25 22:24 History of Present Illness ED Provider: Yvonne CANELA narrative: The patient is a 64-year-old male. He says that yesterday he was walking backwards down a slope when he felt a sudden pain and popping sensation in the back of his left lower leg. He has had pain with walking in the calf ever since and comes to the emergency room because of this injury. No other injuries. He does not feel any pain in his ankle and he does not feel any pain in his knee. Related Data Home Medications ?Medication ?Instructions ?Recorded ?Confirmed atorvastatin 40 mg tablet 40 mg PO BEDTIME 10/27/22 bupropion HCl 150 mg 24 hr tablet, 150 mg PO QAM 10/27/22 extended release bupropion HCl 300 mg 24 hr tablet, 300 mg PO QAM 10/27/22 extended release dulaglutide 0.75 mg/0.5 mL mg subcut QWEEK 10/27/22 subcutaneous pen injector (Trulicity) dulaglutide 1.5 mg/0.5 mL 1.5 mg subcut QWEEK 10/27/22 subcutaneous pen injector (Trulicity) gabapentin 800 mg tablet 800 mg PO QID 10/27/22 glipizide 5 mg tablet 5 mg PO DAILY 10/27/22 insulin detemir U-100 100 unit/mL 30 unit subcut BID 10/27/22 (3 mL) subcutaneous pen (Levemir FlexTouch U-100 Insulin) metformin 1,000 mg tablet 1,000 mg PO BID 10/27/22 metformin 500 mg tablet 500 mg PO BID 10/27/22 risperidone 2 mg tablet 2 mg PO BEDTIME 10/27/22 Previous Rx's ?Medication ?Instructions ?Recorded [id number]-llweaxhumovwj-swgjugbe 1 cap PO Q6H PRN migraine #7 caps 05/25/21 50 mg-300 mg-40 mg capsule (Fioricet) prednisone 20 mg tablet 20 mg PO DAILY 7 days #7 tabs 11/26/22 celecoxib 200 mg capsule 200 mg PO BID #60 caps 09/08/23 azithromycin 250 mg tablet 250 mg PO DAILY 4 days #4 tabs 02/14/25 azithromycin 250 mg tablet See Rx Instructions PO .COMPLEX #6 03/18/25 tabs benzonatate 100 mg capsule 100 mg PO TID PRN cough 7 days #20 02/14/25 caps Allergies Allergy/AdvReac Type Severity Reaction Status Date / Time penicillin V Allergy Unknown Itching Verified 05/02/25 16:03 Review of Systems Review of Systems: Yes all other systems are reviewed and are negative [facility] Past Medical History Medical History Cervical radiculopathy Diabetes Diabetes mellitus, type II HTN (hypertension) Noncompliance with diabetes treatment Osteochondritis Schizoaffective disorder Tinea pedis Tinea pedis of both feet Social History Social History (Updated 04/24/23 @ 11:20 by BHUMIKA Gutierrez) Alcohol intake: former Patient Tobacco Use Status: Former Tobacco user Advance Directives: No Advance Directives Information Provided: No Current occupational status: disabled Current occupation: ambidextrous Physical Exam ED Vital Signs: Vital Signs - 24 hr 05/02/25 16:01 05/02/25 19:38 05/02/25 21:47 Temperature 97.3 F 96.0 F L 97.1 F Pulse Rate 97 82 71 Respiratory Rate 18 16 18 Blood Pressure 132/90 H 132/93 H 138/90 H Pulse Oximetry 95 96 96 Oxygen Delivery Method Room Air Room Air Room Air BMI result Body Mass Index 35.2 Const Other: The patient is a 64-year-old male who was awake, alert, pleasant, cooperative. He does not appear in acute distress. HENMT Other: Face is symmetrical, mucous membranes moist Eyes General: appearance normal, both eyes and all related structures Neck Neck: Yes full ROM and Yes no JVD Resp Effort & Inspection: normal respiratory effort Auscultation: clear to auscultation bilaterally Cardio Rate: regular rate Rhythm: regular rhythm Heart sounds: S1 normal heart sound present and S2 normal heart sound present Skin Other: the skin of the leg is unremarkable. Skin is intact. Neuro Other: The patient is awake and alert with a normal mental status. Cranial nerves are grossly intact. Seems to have intact strength and sensation in his extremities although his left leg is limited by pain in the region of the calf. Extrem Other: The patient has tenderness in the region of the left midcalf. The Achilles tendon seems intact. He is able to move the ankle both in dorsiflexion and plantar flexion although he has pain with movement. The ankle itself is nontender and non swollen. The knee is nontender and non swollen. The left foot has an excellent dorsalis pedis pulse. Course Course Course Narrative: RME, this is a rapid medical exam performed by Christ Bansal please refer to primary provider for complete H&P- 64-year-old male presents for evaluation of atraumatic left calf pain since yesterday. Plan for ultrasound of the lower extremity to rule out DVT. There was no significant erythema to suggest infectious process Medical Decision Making Medical Decision Making MDM Narrative: The patient is in the emergency room for left calf pain that started suddenly when he was walking on a slope. The pain is in the region of the belly of the left calf. The Achilles tendon is intact. The ankle in the knee are nontender. I think the patient most likely had some kind of an acute calf muscle tear. The leg is neurovascularly intact. An ultrasound has been ordered at triage which is negative for DVT. The patient was advised that this seems to be an acute muscle tear. He will be given a tall orthopedic boot that he may wear when moving around. Otherwise he should rest and elevate the foot and follow up with his PCP. He should return to the ER if worse. Discharge Plan Discharge Clinical Impression: Strain of left calf muscle Patient Disposition: Home, Self-Care Additional Instructions: please wear the orthopedic boot provided when you are walking. My hope is that this will make walking less painful and reduce the stress on your injury. You may take the boot off at night or when you are resting. Please elevate the leg often when you are not moving around. Please contact your regular doctor's office for a follow up appointment soon to see how you are doing. Please expect to have pain for a few weeks while your muscle heals. Return to the emergency room if you feel significantly worse. Prescriptions: No Action celecoxib 200 mg capsule 200 mg PO BID Qty: 60 3RF rbuuiuomkx-kswmhwpmrbzht-gexg [Fioricet] 50-300-40 mg capsule 1 cap PO Q6H PRN (Reason: migraine) Qty: 7 0RF prednisone 20 mg tablet 20 mg PO DAILY 7 Days Qty: 7 0RF azithromycin 250 mg tablet See Rx Instructions .ROUTE .COMPLEX Qty: 6 0RF Rx Instructions: For 250 mg dose pack: take 500 mg today (day 1), then 250 mg for 4 days (days 2-5) azithromycin 250 mg tablet 250 mg PO DAILY 4 Days Qty: 4 0RF Rx Instructions: start on day 2 of therapy benzonatate 100 mg capsule 100 mg PO TID PRN (Reason: cough) 7 Days Qty: 20 0RF metformin 500 mg tablet 500 mg PO BID Trulicity 1.5 mg/0.5 mL pen injector 1.5 mg subcut QWEEK glipizide 5 mg tablet 5 mg PO DAILY bupropion HCl 150 mg tablet extended release 24 hr 150 mg PO QAM bupropion HCl 300 mg tablet extended release 24 hr 300 mg PO QAM risperidone 2 mg tablet 2 mg PO BEDTIME Trulicity 0.75 mg/0.5 mL pen injector subcut QWEEK Levemir FlexTouch U100 Insulin 100 unit/mL (3 mL) insulin pen 30 unit subcut BID gabapentin 800 mg tablet 800 mg PO QID metformin 1,000 mg tablet 1,000 mg PO BID atorvastatin 40 mg tablet 40 mg PO BEDTIME Referrals: Tiffanie Yanes MD [Primary Care Provider] - ( left calf muscle tear) Print Language: French
[2025-05-02 19:38] VITALS: BP 132/93; PULSE 82; RESP 16; TEMP 35.6; O2SAT 96
--- OUTSIDE RECORDS SUMMARY | 2025-05-02 20:41 | XMS_ITS | Encounter Summary ---
Author Organization [employer] Address [address] [place] [address] Care Team Providers Care Gear Design Engineer Name Role Phone Tiffanie Yanes MD Primary Care Provide r Jeremiah Blancas PharmD Unavailable [phone] Encounter Details Date Type Department Care Team (Latest Contact Info) Description 04/27/2025 Travel Social History Tobacco Use Types Packs/Day [...] as of this encounter Plan of Treatment Upcoming Encounters Date Type Department Care Team (Late st Contact Info) Description 05/12/2025 9:30 AM EDT Medication Management [facility] [address] [place] [phone] Jeremiah Blancas, PharmD [address] [place] [phone] 07/21/2025 1:30 PM EDT Office Visit [facility] [address] [place] [phone] Tiffanie Yanes MD [address] [place] [phone] documented as of this encounter Visit Diagnoses Not on filedocumented in this encounter Additional Health Concerns Assessment Noted Time PHQ-9 Depression Total Score: 8 07/08/20 24 1:37 PM EDT documented as of this encounter Care Teams Gear Design Engineer Relationship Specialty Start Date End Date Tiffanie Yanes MD [address] [place] [address] [phone] PCP - General Family Medicine 05/17/20 Jeremiah Blancas, PharmD [address] [place] [address] [phone] Pharmacist Internal Medicine 03/07/25 documented as of this encounter
[2025-05-02 21:47] VITALS: BP 138/90; PULSE 71; RESP 18; TEMP 36.2; O2SAT 96
[2025-05-03 00:35] VITALS: BP 138/90; PULSE 71; RESP 18; TEMP 36.2; O2SAT 96
== END 2025-05-03 00:36 | disposition home or self-care (01) ==
PROVIDERS: Emergency Provider Emergency Medicine; PCP Internal Medicine
DX: S86.812A Strain of other muscle(s) and tendon(s) at lower leg level, left leg, initial encounter (principal); X50.9XXA Other and unspecified overexertion or strenuous movements or postures, initial encounter; M79.662 Pain in left lower leg; E11.9 Type 2 diabetes mellitus without complications; I10 Essential (primary) hypertension; Y93.01 Activity, walking, marching and hiking; Y92.828 Other wilderness area as the place of occurrence of the external cause; Y99.9 Unspecified external cause status
CPT/HCPCS: 93971; 99283; 99284

== ENCOUNTER → 2025-05-02 16:03 | Outpatient (BNV) | payer OTHER, SELFPAY | PROVIDERS: PCP Internal Medicine; Visit Provider Radiology Diagnostic Radiology | DX: M79.662 Pain in left lower leg (principal) | CPT/HCPCS: 93971 ==

== ENCOUNTER 2025-07-10 05:58 | Outpatient (REF) | payer OTHER, SELFPAY ==
[2025-07-10 08:22] LABS: Alanine Aminotransferase 18 U/L (0-40); Albumin Level 4.3 g/dL (3.5-5.0); Alkaline Phosphatase 133 U/L (39-117); Aspartate Amino Transferase 23 U/L (5-37); Cholesterol 173 mg/dL (<200); HDL Cholesterol 42 mg/dL (>40); Total Protein 7.2 g/dL (6.5-8.0); Triglycerides 150 mg/dL (<150)
[2025-07-10 08:36] LABS: Vitamin B12 332 pg/mL (200-900)
== END 2025-07-10 05:59 | disposition home or self-care (01) ==
LOC: HO.LAB 05:58
PROVIDERS: PCP Internal Medicine; Visit Provider Internal Medicine
DX: E11.65 Type 2 diabetes mellitus with hyperglycemia (principal); Z79.4 Long term (current) use of insulin
CPT/HCPCS: 36415; 80061; 80076; 82607